=== PATIENT | female | born 1950 | race African-American/Black ===

== ENCOUNTER 2016-08-05 22:05 | Inpatient (IN) | payer MEDICARE ==
[2016-08-05 22:12] VITALS: BMI 25.0
[2016-08-05] MEDS ORDERED: SODIUM CHLORIDE 1,000 ML IV STA ×2 (22:22→23:43)
[2016-08-05] MEDS ORDERED: ONDANSETRON 4 MG/2 ML VIAL IVPB ONE (22:40)
--- NOTE | 2016-08-05 22:43 | PDOC ---
History of Present Illness - General History Source: Patient Exam Limitations: No Limitations - History of Present Illness Initial Comments: 08/05/16 23:44 The patient is a 65 year old female with past medical history of NIDDM, hypertension, hyperlipidemia, who presents to the ED with elevated sugar levels. She reports experiencing an episode of sudden onset epigastric pain, mid -sternal chest discomfort, as well as nausea, vomiting, and a right sided temporal headache that began three hours ago. She reports an overall feeling of weakness as well. She checked her sugar which was noted to be 379. She reports her baseline is in the 300s and reports taking her medications today. The patient also complains of increased thirst and urinary frequency. GI: Pito Morin PCP: Linden Parker <Karyna Weber - Last Filed: 08/06/16 01:41> - General History Source: Patient Exam Limitations: No Limitations <Manny Siu - Last Filed: 08/06/16 01:50> - General Chief Complaint: Blood Sugar Problem Stated Complaint: VOMITING/LIGHTHEADED Time Seen by Provider: 08/05/16 22:20 Past History <Karyna Weber - Last Filed: 08/06/16 01:41> - Past Medical History Anemia: No Asthma: No Cancer: No Cardiac Disorders: Yes (denies) CVA: No COPD: No CHF: No Dementia: No Diabetes: Yes GI Disorders: Yes (ulcers) Disorders: No HTN: Yes Hypercholesterolemia: Yes Liver Disease: No Suicide Attempt (Hx): No Seizures: No Thyroid Disease: No - Surgical History Abdominal Surgery: No Appendectomy: No Cardiac Surgery: No Cholecystectomy: No Lung Surgery: No Orthopedic Surgery: No - Psycho/Social/Smoking Cessation Hx Anxiety: No Suicidal Ideation: No Smoking Status: Yes Smoking History: Current every day smoker Have you smoked in the past 12 months: No Number of Cigarettes Smoked Daily: 10 Information on smoking cessation initiated: No 'Breaking Loose' booklet given: 03/16/17 Hx Alcohol Use: No Drug/Substance Use Hx: No Substance Use Type: None Hx Substance Use Treatment: No <Manny Siu - Last Filed: 08/06/16 01:50> - Past Medical History Allergies/Adverse Reactions: Allergies Allergy/AdvReac Type Severity Reaction Status Date / Time No Known Drug Allergies Allergy Verified 08/05/16 22:09 Home Medications: Ambulatory Orders Aspirin Coated [Ecotrin -] 81 mg PO DAILY 03/14/16 Atorvastatin Ca [Lipitor] 20 mg PO HS 03/15/16 Linagliptin/Metformin HCl [Jentadueto 2.5 mg-1000 mg Tab] 1 each PO BID Losartan/Hydrochlorothiazide [Losartan-Hctz 50-12.5 mg Tab] 1 each PO DAILY Oxybutynin Chloride 5 mg PO BID 03/15/16 Review of Systems - Review of Systems Able to Perform ROS?: Yes Comments:: 08/05/16 23:44 GENERAL/CONSTITUTIONAL: Present: weakness No fever or chills. HEAD, EYES, EARS, NOSE AND THROAT: No change in vision. No ear pain or discharge. No sore throat CARDIOVASCULAR: No chest pain or shortness of breath. RESPIRATORY: No cough, wheezing, or hemoptysis. GASTROINTESTINAL: Present: epigastric pain, nausea, vomiting No diarrhea or constipation. GENITOURINARY: Present: urinary frequency No dysuria or change in urination. MUSCULOSKELETAL: No joint or muscle swelling or pain. No neck or back pain. SKIN: No rash NEUROLOGIC: Present: headache No vertigo, loss of consciousness, or change in strength/sensation. ENDOCRINE: No increased thirst. No abnormal weight change. HEMATOLOGIC/LYMPHATIC: No anemia, easy bleeding, or history of blood clots. ALLERGIC/IMMUNOLOGIC: No hives or skin allergy. All Other Systems: Reviewed and Negative <Karyna Weber - Last Filed: 08/06/16 01:41> *Physical Exam - Vital Signs Last Vital Signs Temp Pulse Resp BP Pulse Ox 98.7 F 94 H 14 144/82 96 08/05/16 22:10 08/05/16 22:10 08/05/16 22:10 08/05/16 22:10 08/05/16 22:10 - Physical Exam Comments: 08/05/16 23:47 GENERAL: Awake, alert, and fully oriented, in no acute distress HEAD: No signs of trauma EYES: PERRLA, EOMI, sclera anicteric, conjunctiva clear ENT: Auricles normal inspection, hearing grossly normal, nares patent, oropharynx clear without exudates. Moist mucosa NECK: Normal ROM, supple, no lymphadenopathy, JVD, or masses LUNGS: Breath sounds equal, clear to auscultation bilaterally. No wheezes, and no crackles HEART: Regular rate and rhythm, normal S1 and S2, no murmurs, rubs or gallops ABDOMEN: Soft, epigastric tenderness to palpation, normoactive bowel sounds. No guarding, no rebound. No masses EXTREMITIES: Normal range of motion, no edema. No clubbing or cyanosis. No cords, erythema, or tenderness NEUROLOGICAL: Cranial nerves II through XII grossly intact. Normal speech, normal gait <GusKaryna - Last Filed: 08/06/16 01:41> - Vital Signs Last Vital Signs Temp Pulse Resp BP Pulse Ox 98.7 F 94 H 14 144/82 96 08/05/16 22:10 08/05/16 22:10 08/05/16 22:10 08/05/16 22:10 08/05/16 22:10 <Manny Siu - Last Filed: 08/06/16 01:50> Heart Score/ECG Review - History History: Moderately suspicious - Electrocardiogram EKG: Normal - Age Age: >/= 65 - Risk Factors Risk Factors Heart Score: Yes Hx Hypercholesterolemia, Yes Hx Hypertension, Yes Hx Diabetes Based on the list above the patient has:: >/=3 risk factors or Hx atherosclerotic disease - Troponin Troponin: </= normal limit - Score Heart Score - Total: 5 #1 ECG reviewed & interpreted by me at: 23:20 08/05/16 23:53 NSR 82, no std/navin, normal axis, normal intervals, QTC 441 msec. <Manny Siu - Last Filed: 08/06/16 01:50> ED Treatment Course - LABORATORY CBC & Chemistry Diagram: 08/05/16 22:49 08/06/16 00:05 - ADDITIONAL ORDERS Additional order review: Laboratory Results 08/05/16 08/05/16 08/05/16 22:50 22:50 22:49 INR 1.04 PTT (Actin FS) 29.1 Sodium Cancelled Potassium Cancelled Chloride Cancelled Carbon Dioxide Cancelled Anion Gap Cancelled BUN Cancelled Creatinine Cancelled Creat Clearance w eGFR Cancelled Random Glucose Cancelled Lactic Acid 4.543 H* Calcium Cancelled Total Bilirubin Cancelled AST Cancelled ALT Cancelled Alkaline Phosphatase Cancelled Total Protein Cancelled Albumin Cancelled Urine Color Urine Appearance Urine pH Ur Specific [place] Urine Protein Urine Glucose (UA) Urine Ketones Urine Blood Urine Nitrite Urine Bilirubin Urine Urobilinogen Ur Leukocyte Esterase Acetone, Qual Cancelled 08/05/16 22:49 INR PTT (Actin FS) Sodium Potassium Chloride Carbon Dioxide Anion Gap BUN Creatinine Creat Clearance w eGFR Random Glucose Lactic Acid Calcium Total Bilirubin AST ALT Alkaline Phosphatase Total Protein Albumin Urine Color Straw Urine Appearance Clear Urine pH 5.0 Ur Specific [place] 1.030 Urine Protein Negative Urine Glucose (UA) 3+ H Urine Ketones Negative Urine Blood Negative Urine Nitrite Negative Urine Bilirubin Negative Urine Urobilinogen Negative Ur Leukocyte Esterase Negative Acetone, Qual 08/05/16 22:49 RBC 5.57 H MCV 87.9 MCHC 33.4 RDW 14.6 MPV 10.0 Neutrophils % 57.9 D Lymphocytes % 34.2 D Monocytes % 4.4 Eosinophils % 1.0 Basophils % 2.5 H D - Medications Given in the ED: ED Medications Discontinued Medications Generic Name Dose Route Start Last Admin Trade Name Freq PRN Reason Stop Dose Admin Sodium Chloride 1,000 mls @ 1,000 mls/hr 08/05/16 22:22 08/05/16 22:49 Normal Saline - IV 08/05/16 23:21 1,000 mls/hr ASDIR STA Administration Ondansetron HCl 4 mg 08/05/16 22:40 08/05/16 23:37 Zofran Injection IVPB 08/05/16 22:41 4 mg ONCE ONE Administration <Karyna Weber - Last Filed: 08/06/16 01:41> - LABORATORY CBC & Chemistry Diagram: 08/05/16 22:49 08/06/16 00:05 - RADIOLOGY Radiology Studies Ordered: Category Date Time Status CHEST X-RAY PORTABLE* [RAD] Stat Radiology 08/05/16 22:31 Ordered <Manny Siu - Last Filed: 08/06/16 01:50> Medical Decision Making - Medical Decision Making 08/06/16 01:35 Phone call sent to Dr. Kam, who admits for Dr. Parker via answering service. Call was connected immediately and the case was discussed. <Karyna Weber - Last Filed: 08/06/16 01:41> - Medical Decision Making 08/05/16 22:40 A portion of this note was documented by scribe services under my direction. I have reviewed the details of the note, within reason, and agree with the documentation with the following case summary and management plan written by me. Patient treated in the ED. Nursing notes are reviewed and incorporated into the medical decision-making. Vital signs reviewed. Peripheral IV access obtained by the nurse, laboratory studies are drawn and sent, reviewed and interpreted by myself. Vital Signs Temp Pulse Resp BP Pulse Ox 98.7 F 94 H 14 144/82 96 08/05/16 22:10 08/05/16 22:10 08/05/16 22:10 08/05/16 22:10 08/05/16 22:10 65-year-old female with history of hypertension, diabetes presents with nausea, vomiting. Patient was in her usual state of health when approximately 3 hours prior to arrival, she felt this epigastric and misternal chest discomfort and pressure, nausea, vomiting, right-sided headache and felt generally weak. She fell persistent nauseous and general malaise. Patient then checked her fingerstick was noted to be in the high 370s (but patient reports that her glucose is always greater than 300 at baseline.. Patient called 911 and the patient was brought to the ER. She continues to feel generally unwell. Also endorses urinary frequency (though again that this is chronic for her as well). Given hx of DM and epigastric, subxiphoid discomfort and nausea, will need to [facility]. However, with elevated sugars and increased urinary frequency, will need to r/o UTI, though patient's urinary frequency may be 2/2 to her hyperglycemia. Labs, chest. Reassess. The patient should be admitted for further evaluation. As of note, the patient goes to Dr. Morin for persistent, chronic epigastric pain. She reports having an endoscopy within this past year but does not know results. 08/06/16 01:44 CBC, BMP 08/05/16 22:49 08/06/16 00:05 CMP Sodium 146 mmol/L (136-145) H 08/06/16 00:05 Potassium 3.7 mmol/L (3.5-5.1) 08/06/16 00:05 Chloride 101 mmol/L (98-107) 08/06/16 00:05 Carbon Dioxide 28 mmol/L (21-32) 08/06/16 00:05 Anion Gap 17 (8-16) H 08/06/16 00:05 BUN 13 mg/dL (7-18) D 08/06/16 00:05 Creatinine 0.7 mg/dL (0.55-1.02) 08/06/16 00:05 Creat Clearance w eGFR > 60 (>60) 08/06/16 00:05 Random Glucose 295 mg/dL (74-106) H D 08/06/16 00:05 Lactic Acid 2.225 mmol/L (0.4-2.0) H* 08/06/16 00:05 Calcium 8.9 mg/dL (8.5-10.1) 08/06/16 00:05 Total Bilirubin 0.3 mg/dL (0.2-1.0) D 08/06/16 00:05 AST 6 U/L (15-37) L D 08/06/16 00:05 ALT 16 U/L (12-78) D 08/06/16 00:05 Alkaline Phosphatase 96 U/L (45-117) D 08/06/16 00:05 Creatine Kinase 61 IU/L (26-192) 08/06/16 00:05 Troponin I 0.10 ng/ml (0.00-0.05) H 08/06/16 00:05 Total Protein 6.5 g/dl (6.4-8.2) 08/06/16 00:05 Albumin 3.4 g/dl (3.4-5.0) 08/06/16 00:05 Urine Test Results Urine Color Straw 08/05/16 22:49 Urine Appearance Clear 08/05/16 22:49 Urine pH 5.0 (5.0-8.0) 08/05/16 22:49 Ur Specific [place] 1.030 (1.001-1.035) 08/05/16 22:49 Urine Protein Negative (NEGATIVE) 08/05/16 22:49 Urine Glucose (UA) 3+ (NEGATIVE) H 08/05/16 22:49 Urine Ketones Negative (NEGATIVE) 08/05/16 22:49 Urine Blood Negative (NEGATIVE) 08/05/16 22:49 Urine Nitrite Negative (NEGATIVE) 08/05/16 22:49 Urine Bilirubin Negative (NEGATIVE) 08/05/16 22:49 Ur Leukocyte Esterase Negative (NEGATIVE) 08/05/16 22:49 Chest xray pending. Labs reviewed. Initially, a lactic acid was 4.5. A second was repeat after 1L of IVF, and the second lactic acid was 2.2. Blood cultures was ordered and empiric zosyn was ordered. Interestingly, the troponin was 0.1 as well. Aspirin was given. Will trend the troponins. If the troponin continues to trend upwards, will initiate heparin. Consultation placed in for Dr. Caballero. Case discussed with Dr. Kam who accepted the patient to telemetry admission. Case discussed in detail with admitting physician including history, physical exam and ancillary studies. Admitting physician has assumed care for the patient, will follow all pending diagnostics and will complete the evaluation and treatment. 08/06/16 01:50 Pt reports that her PMD is Dr. Linden Parker <Manny Siu - Last Filed: 08/06/16 01:50> *DC/Admit/Observation/Transfer - Attestations Scribe Attestion: 08/05/16 23:52 Documentation prepared by Karyna Weber, acting as medical supply technician for Manny Siu MD. <Karyna Weber - Last Filed: 08/06/16 01:41> - Discharge Dispostion Admit: Yes <Manny Siu - Last Filed: 08/06/16 01:50> Diagnosis at time of Disposition: Elevated troponin Abdominal pain Qualifiers: Abdominal location: epigastric Qualified Code(s): R10.13 - Epigastric pain - Referrals Referrals: Anuja Parker [Primary Care Provider] -
[2016-08-05 23:00] LABS: BASOPHIL 2.5 % (0-2.0); MCH 29.4 pg (25.7-33.7); MCHC 33.4 g/dl (32.0-36.0); MEAN CELL VOLUME 87.9 fl (80-96); NEUTROPHILS 57.9 % (42.8-82.8); PLATELET COUNT 266 K/MM3 (134-434); RDW 14.6 % (11.6-15.6); WHITE BLOOD COUNT 10.1 K/mm3 (4.0-10.0)
[2016-08-05 23:03] LABS: URINE APPEARANCE CLEAR; URINE BILIRUBIN NEGATIVE (NEGATIVE); URINE BLOOD NEGATIVE (NEGATIVE); URINE COLOR STRAW; URINE GLUCOSE (UA) 3+ (NEGATIVE); URINE KETONE NEGATIVE (NEGATIVE); URINE LEUK ESTERASE NEGATIVE (NEGATIVE); URINE NITRITE NEGATIVE (NEGATIVE); URINE PROTEIN NEGATIVE (NEGATIVE); URINE UROBILINOGEN NEGATIVE E.U./dl (0.2-1.0)
[2016-08-05 23:19] LABS: INR 1.04 (0.82-1.09); PROTHROMBIN TIME (PATIENT) 11.5 SEC (9.98-11.88)
[2016-08-05 23:22] LABS: ACTIVATED PTT 29.1 SECONDS (26.9-34.4)
[2016-08-05] MEDS ORDERED: ONDANSETRON 4 MG/2 ML VIAL ONE (23:38)
[2016-08-05] MEDS ORDERED: FAMOTIDINE 20 MG/50 ML IVPB 50 ML IVPB ONE (23:51)
[2016-08-05] MEDS ORDERED: ASPIRIN 81 MG CHEWABLE TABLETS PO ONE (23:51)
[2016-08-06] MEDS ORDERED: ASPIRIN 325 MG TABLET ONE (00:20)
[2016-08-06] MEDS ORDERED: FAMOTIDINE 20 MG/50 ML IVPB 50 ML IVPB ONE (00:20)
[2016-08-06 01:06] LABS: ALBUMIN 3.4 g/dl (3.4-5.0); ALK PHOS 96 U/L (45-117); ANION GAP 17 (8-16); BILIRUBIN,TOTAL 0.3 mg/dL (0.2-1.0); CALCIUM 8.9 mg/dL (8.5-10.1); CO2 28 mmol/L (21-32); CREATININE 0.7 mg/dL (0.55-1.02); GLUCOSE,RANDOM 295 mg/dL (74-106); SGOT/AST 6 U/L (15-37); SGPT/ALT 16 U/L (12-78); TOT PROT 6.5 g/dl (6.4-8.2)
[2016-08-06 01:09] LABS: TROPONIN I 0.1 ng/ml (0.00-0.05)
[2016-08-06] MEDS ORDERED: PIPERACILLIN/TAZOB 3.375 GM/50 ML PRE-DOCKED IVPB ONE (01:29)
[2016-08-06] MEDS ORDERED: PIPERACILLIN/TAZOB 3.375 GM 50 ML IVPB ONE (02:39)
--- NOTE | 2016-08-06 03:33 | HP ---
CHIEF COMPLAINT: Elevated Blood Sugar, Chest Pain, Epigastric Pain PCP: Dr. Linden Parker HISTORY OF PRESENT ILLNESS: This is a 65 year old woman with a past medical of NIDDM, HTN, HLD, Ulcer, Smoker. Who presents to the emergency department with elevated blood sugar, chest pain and epigastric pain x last night. Patient reports the quality of the CP as a dull ache with burning to her epigastrium. Patient reports having non- bilious vomiting. Patient reports having tingling to bilateral feet x 2 weeks. Patient reports having an echo 3 weeks ago results-normal. Patient denies fever , chills , dizziness, SOB, diarrhea, constipation, dysuria ER course was notable for: (1) Glucose 295, AG 17, Serum Acetone- negative (2) Lactic Acid 4.5~ 2.25 after 2L NS bolus (3) EKG- NSR no ST or TWI Recent Travel: None PAST MEDICAL HISTORY: See HPI PAST SURGICAL HISTORY: Social History: Smoking: Cigarette 1/2PPD x 35 years Alcohol: None Drugs: None Lives alone-retired Family History: Brother: Throat Ca Brother: Prostate Ca Sister: Cancer, unknown- Diabetes: Grandmother, Grandfather Allergies No Known Drug Allergies Allergy (Verified 08/05/16 22:09) HOME MEDICATIONS: Medication Instructions Recorded Aspirin Coated [Ecotrin -] 81 mg PO DAILY 03/14/16 Atorvastatin Ca [Lipitor] 20 mg PO HS 03/15/16 Linagliptin/Metformin HCl 1 each PO BID 03/15/16 [Jentadueto 2.5 mg-1000 mg Tab] Losartan/Hydrochlorothiazide 1 each PO DAILY 03/15/16 [Losartan-Hctz 50-12.5 mg Tab] Oxybutynin Chloride 5 mg PO BID 03/15/16 REVIEW OF SYSTEMS CONSTITUTIONAL: Absent: fever, chills, diaphoresis, generalized weakness, malaise, loss of appetite, weight change HEENT: Absent: rhinorrhea, nasal congestion, throat pain, throat swelling, difficulty swallowing, mouth swelling, ear pain, eye pain, visual changes CARDIOVASCULAR: chest pain Absent: syncope, palpitations, irregular heart rate, lightheadedness, peripheral edema RESPIRATORY: Absent: cough, shortness of breath, dyspnea with exertion, orthopnea, wheezing, stridor, hemoptysis GASTROINTESTINAL: abdominal pain, nausea, vomiting Absent: abdominal distension, diarrhea, constipation, melena, hematochezia GENITOURINARY: Absent: dysuria, frequency, urgency, hesitancy, hematuria, flank pain, genital pain MUSCULOSKELETAL: Absent: myalgia, arthralgia, joint swelling, back pain, neck pain SKIN: Absent: rash, itching, pallor HEMATOLOGIC/IMMUNOLOGIC: Absent: easy bleeding, easy bruising, lymphadenopathy, frequent infections ENDOCRINE: Absent: unexplained weight gain, unexplained weight loss, heat intolerance, cold intolerance NEUROLOGIC: bladder incontinence Absent: headache, focal weakness or paresthesias, dizziness, unsteady gait, seizure, mental status changes, bowel incontinence PSYCHIATRIC: Absent: anxiety, depression, suicidal or homicidal ideation, hallucinations. PHYSICAL EXAMINATION GENERAL: Awake, alert, and fully oriented, in no acute distress. HEAD: Normal with no signs of trauma. EYES: Pupils equal, round and reactive to light, extraocular movements intact, sclera anicteric, conjunctiva clear. No lid lag. EARS, NOSE, THROAT: Ears normal, nares patent, oropharynx clear without exudates. Moist mucous membranes. NECK: Normal range of motion, supple without lymphadenopathy, JVD, or masses. LUNGS: Breath sounds equal, clear to auscultation bilaterally. No wheezes, and no crackles. No accessory muscle use. HEART: Regular rate and rhythm, normal S1 and S2 without murmur, rub or gallop. Non-reproducible CP on palpation ABDOMEN: Soft, epigastric tenderness, not distended, normoactive bowel sounds, no guarding, no rebound, no masses. No hepatomegaly or splenomegaly. MUSCULOSKELETAL: Normal range of motion at all joints. No bony deformities or tenderness. No CVA tenderness. UPPER EXTREMITIES: 2+ pulses, warm, well-perfused. No cyanosis. No clubbing. Cap refill <2 seconds. No peripheral edema. LOWER EXTREMITIES: 2+ pulses, warm, well-perfused. No calf tenderness. No peripheral edema. NEUROLOGICAL: Cranial nerves II-XII intact. Normal speech. Normal gait. PSYCHIATRIC: Cooperative. Good eye contact. Appropriate mood and affect. SKIN: Warm, dry, normal turgor, no rashes or lesions noted. Laboratory Results - last 24 hr 08/05/16 08/05/16 08/05/16 22:49 22:49 22:49 WBC 10.1 H RBC 5.57 H Hgb 16.4 H Hct 49.0 H MCV 87.9 MCHC 33.4 RDW 14.6 Plt Count 266 MPV 10.0 Neutrophils % 57.9 D Lymphocytes % 34.2 D Monocytes % 4.4 Eosinophils % 1.0 Basophils % 2.5 H D INR PTT (Actin FS) Sodium Cancelled Potassium Cancelled Chloride Cancelled Carbon Dioxide Cancelled Anion Gap Cancelled BUN Cancelled Creatinine Cancelled Creat Clearance w eGFR Cancelled Random Glucose Cancelled Lactic Acid Calcium Cancelled Total Bilirubin Cancelled AST Cancelled ALT Cancelled Alkaline Phosphatase Cancelled Creatine Kinase Troponin I Total Protein Cancelled Albumin Cancelled Urine Color Straw Urine Appearance Clear Urine pH 5.0 Ur Specific [place] 1.030 Urine Protein Negative Urine Glucose (UA) 3+ H Urine Ketones Negative Urine Blood Negative Urine Nitrite Negative Urine Bilirubin Negative Urine Urobilinogen Negative Ur Leukocyte Esterase Negative Acetone, Qual Cancelled 08/05/16 08/05/16 08/06/16 22:50 22:50 00:05 WBC RBC Hgb Hct MCV MCHC RDW Plt Count MPV Neutrophils % Lymphocytes % Monocytes % Eosinophils % Basophils % INR 1.04 PTT (Actin FS) 29.1 Sodium 146 H Potassium 3.7 Chloride 101 Carbon Dioxide 28 Anion Gap 17 H BUN 13 D Creatinine 0.7 Creat Clearance w eGFR > 60 Random Glucose 295 H D Lactic Acid 4.543 H* Calcium 8.9 Total Bilirubin 0.3 D AST 6 L D ALT 16 D Alkaline Phosphatase 96 D Creatine Kinase Troponin I Total Protein 6.5 Albumin 3.4 Urine Color Urine Appearance Urine pH Ur Specific [place] Urine Protein Urine Glucose (UA) Urine Ketones Urine Blood Urine Nitrite Urine Bilirubin Urine Urobilinogen Ur Leukocyte Esterase Acetone, Qual 08/06/16 08/06/16 08/06/16 00:05 00:05 00:25 WBC RBC Hgb Hct MCV MCHC RDW Plt Count MPV Neutrophils % Lymphocytes % Monocytes % Eosinophils % Basophils % INR PTT (Actin FS) Sodium Cancelled Potassium Cancelled Chloride Cancelled Carbon Dioxide Cancelled Anion Gap Cancelled BUN Cancelled Creatinine Cancelled Creat Clearance w eGFR Random Glucose Cancelled Lactic Acid 2.225 H* Calcium Cancelled Total Bilirubin AST ALT Alkaline Phosphatase Creatine Kinase 61 Troponin I 0.10 H Total Protein Albumin Urine Color Urine Appearance Urine pH Ur Specific [place] Urine Protein Urine Glucose (UA) Urine Ketones Urine Blood Urine Nitrite Urine Bilirubin Urine Urobilinogen Ur Leukocyte Esterase Acetone, Qual Negative L 08/06/16 08/06/16 04:47 04:47 WBC 10.2 H RBC 4.71 Hgb 13.7 D Hct 41.2 D MCV 87.6 MCHC 33.3 RDW 15.0 Plt Count 223 MPV 9.4 Neutrophils % 52.1 Lymphocytes % 40.6 H Monocytes % 5.1 Eosinophils % 1.1 Basophils % 1.1 INR PTT (Actin FS) Sodium Potassium Chloride Carbon Dioxide Anion Gap BUN Creatinine Creat Clearance w eGFR Random Glucose Lactic Acid Calcium Total Bilirubin AST ALT Alkaline Phosphatase Creatine Kinase Cancelled Troponin I Cancelled Total Protein Albumin Urine Color Urine Appearance Urine pH Ur Specific [place] Urine Protein Urine Glucose (UA) Urine Ketones Urine Blood Urine Nitrite Urine Bilirubin Urine Urobilinogen Ur Leukocyte Esterase Acetone, Qual ASSESSMENT/PLAN: This is a 65 year old woman with a PMHx of: NIDDM, HTN, HLD, Gastric Ulcer, Current Smoker. Who presents to the ED with Hyperglycemia, Chest Pain. Admitted to Telemetry for Dr. Kam, Chest Pain r/o ACS, Elevated Troponin, Hyperglycemia for further evaluation of their emergent condition. Patient was admitted as a tuck in to Dr. Kam's service per her request per ED attending Dr. Varela. Plan: 1. Chest Pain r/o ACS - Tele monitoring - HEART Score 5 - Appreciate Cardiology consult - Trop I mildly elevated - Cardiac Enzymes x2 - Consider Heparin if Trop I continues to trend up - Will need to obtain patient's recent Echo done 3 weeks ago at [facility] - Lipid Panel in am - Asa - BB - Monitor vitals 2. Hyperglycemia - Uncontrolled - AG 17~11 - NS bolus x2 given in ED - IVF - BGMs - ISS - HgBA1C in am - Monitor renal function - Monitor BMP - Hold Metformin 3. Epigastric Pain - Continue Pepcid 4. Hypomagnesemia - Repleted with Mag Sulfate 2Gm - Monitor lytes 5. HTN - Continue Losartan - Hold HCTZ - Monitor BP 6. HLD - Monitor Lipitor - Lipid Panel in am 7. F/E/N - 0.45%NS@75ml/hr - Repleted lytes prn 8. DVT Prophylaxis - OOB - SCDs - Heparin SQ Code Status: Patient is a Full Code Visit type - Emergency Visit Emergency Visit: Yes ED Registration Date: 08/06/16 Care time: The patient presented to the Emergency Department on the above date and was hospitalized for further evaluation of their emergent condition. - New Patient This patient is new to me today: Yes Date on this admission: 08/06/16 - Critical Care Critical Care patient: No
[2016-08-06] MEDS: SODIUM CHLORIDE 0.45% 1,000 ML IV SCH ×2 (04:44→22:51)
[2016-08-06 05:12] LABS: BASOPHIL 1.1 % (0-2.0); EOSINOPHIL 1.1 % (0-4.5); MCH 29.1 pg (25.7-33.7); MCHC 33.3 g/dl (32.0-36.0); MEAN CELL VOLUME 87.6 fl (80-96); MEAN PLT VOLUME 9.4 fl (7.5-11.1); NEUTROPHILS 52.1 % (42.8-82.8); PLATELET COUNT 223 K/MM3 (134-434); WHITE BLOOD COUNT 10.2 K/mm3 (4.0-10.0)
[2016-08-06 05:38] LABS: CALCIUM 8.4 mg/dL (8.5-10.1); CREATININE 0.6 mg/dL (0.55-1.02); MAGNESIUM 1.5 mg/dL (1.8-2.4); PHOSPHOROUS 3.7 mg/dL (2.5-4.9)
[2016-08-06 05:40] LABS: TROPONIN I 0.11 ng/ml (0.00-0.05)
[2016-08-06] MEDS ORDERED: MAGNESIUM SULF 50% (8.12 MEQ/2 ML-1 GM VIAL) IVPB ONE (06:41)
[2016-08-06] MEDS ORDERED: INSULIN (NOVOLOG) ASPART 100 UNITS/ML 10ML VIAL SQ ONE (06:56)
[2016-08-06] MEDS: INSULIN SLIDING SCALE (NOVOLOG) 1 VIAL SQ SCH ×4 (07:02→22:51)
--- NOTE | 2016-08-06 10:11 | PN ---
Physical Exam: SUBJECTIVE: Patient seen and examined Lactic acidosis resolved TNi 0.11 5am A1c 12.4 cxr 08/05 no acute pathology BGM this morning 225-will start low salt diabetic diet for lunch Chest pain and abdominal pain resolved OBJECTIVE: Vital Signs Period Temp Pulse Resp BP Sys/Long Pulse Ox Last 24 Hr 98 F 73 16 144/72 99 GENERAL: The patient is awake, alert, in no acute distress. HEAD: atraumatic normocephalic EYES: PERRL, extraocular movements intact, sclera anicteric, conjunctiva clear. No ptosis. ENT: Ears normal, nares patent, oropharynx clear without exudates, moist mucous membranes. NECK: Trachea midline, full range of motion, supple. LUNGS: Breath sounds equal, clear to auscultation bilaterally, no wheezes, no crackles, no accessory muscle use. HEART: Regular rate and rhythm, S1, S2 without murmur, rub or gallops ABDOMEN: Soft, nondistended, non tender normoactive bowel sounds EXTREMITIES: 2+ pulses, warm, well-perfused, no edema. NEUROLOGICAL: Cranial nerves II through XII grossly intact. Normal speech, gait not observed. PSYCH: Normal mood, normal affect. SKIN: Warm, dry, normal turgor, no rashes or lesions noted Laboratory Results - last 24 hr 08/06/16 08/06/16 08/06/16 04:47 04:47 04:47 WBC 10.2 H RBC 4.71 Hgb 13.7 D Hct 41.2 D MCV 87.6 MCHC 33.3 RDW 15.0 Plt Count 223 MPV 9.4 Neutrophils % 52.1 Lymphocytes % 40.6 H Monocytes % 5.1 Eosinophils % 1.1 Basophils % 1.1 Sodium 144 Potassium 3.8 Chloride 103 Carbon Dioxide 30 Anion Gap 11 BUN 12 Creatinine 0.6 Random Glucose 245 H Hemoglobin A1c % 12.4 H D Lactic Acid Calcium 8.4 L Phosphorus 3.7 Magnesium 1.5 L Creatine Kinase Cancelled Troponin I Cancelled Triglycerides 57 Cholesterol 88 Total LDL Cholesterol 48 HDL Cholesterol 37 L 08/06/16 08/06/16 04:47 04:47 WBC RBC Hgb Hct MCV MCHC RDW Plt Count MPV Neutrophils % Lymphocytes % Monocytes % Eosinophils % Basophils % Sodium Potassium Chloride Carbon Dioxide Anion Gap BUN Creatinine Random Glucose Hemoglobin A1c % Lactic Acid 1.486 Calcium Phosphorus Magnesium Creatine Kinase 60 Troponin I 0.11 H Triglycerides Cholesterol Total LDL Cholesterol HDL Cholesterol Active Medications Generic Name Dose Route Start Last Admin Trade Name Robert PRN Reason Stop Dose Admin Aspirin 81 mg 08/06/16 10:00 Ecotrin - PO DAILY REAGAN Atorvastatin Calcium 20 mg 08/06/16 22:00 Lipitor - PO HS REAGAN Heparin Sodium (Porcine) 5,000 unit 08/06/16 10:00 Heparin - SQ BID REAGAN Sodium Chloride 1,000 mls @ 60 mls/hr 08/06/16 04:30 08/06/16 04:44 1/2 Normal Saline IV 60 mls/hr ASDIR REAGAN Administration Insulin Aspart 1 vial 08/06/16 07:00 08/06/16 07:02 Novolog Vial Sliding Scale - SQ Not Given ACHS [facility] Protocol Losartan Potassium 50 mg 08/06/16 10:00 Cozaar - PO DAILY [facility] Oxybutynin Chloride 5 mg 08/06/16 10:00 Ditropan - PO BID REAGAN ASSESSMENT/PLAN: 65 y/o female with PMHx of NIDDM, hypertension, hyperlipidemia, gastric ulcers, active smoker who presents to the ED with complaints of epigastric and midsternal chest discomfort with associated nausea and vomiting (non bloody), headache and generalized malaise. She reports checking her sugar and it was noted to be in the high 300's. Per patient her glucose is usually greater than 300. She also reports increased thirst and urinary frequency (chronic). In the ER she received ASA 325 mg, Zosyn 3.375g, famotidine, IVF started and she received novolog 3 units for a sugar of 295. Blood and urine collected and her magnesium was repleted. CXR 08/05 no acute pathology. In the ER she was found to have an elevated lactic acid and anion gap which resolved post IVF. ECG NSR no ST or TWI. Her cardiac enzymes are mildly elevated 0.11 at 5am. She will be admitted to tele to [facility] for ACS and cardio will be consulted Of note the patient is under the care of Dr Garcia for chronic persistent epigastric pain. Patient reports having EGD done around 3 months ago but does not know the results of the study. 1 Supxiphoid pain/ACS:resolved -Continuous Tele -repeat enzymes -Cardio conuslt pending. May require heparin ggt -ASA 81 mg daily -Continue with statin -not on BB 2 Elevated TNi -Patient reports chest pain resolved -enzymes on the upper limit of normal -repeat enzymes -cardio consult 3 urinary frequency (chronic) ? UTI vs hyperglycemia vs overactive bladder -urine sent to r/o UTI. UA neg, cx pending -continue IVF -glucose control -continue with home dose of oxybutonin 4 hyperglycemia (uncontroleld) -A1c 12.4. patient reports glucose usually in the 300s -glucose now 225-will resume low salt diabetic diet for lunch -BGMs ACTID and novolog ISS coverage added -hold home dose of metformin 5 epigastric pain:resolved -protonix 20 mg PO q day -f/u with GI (dr garcia) if pain does not improve 6 HTN: -continue home dose of losartan -may uptitrate if BP remains elevated 7 hypomagnesmia -mag repleted -f/u mg and phos 8 DVT ppx -heparin SQ Dispo Cardio consult f/u cardiac enzymes and lytes, restart PO intake for lunch. Code Status: Patient is a Full Code Visit type - Emergency Visit Emergency Visit: Yes ED Registration Date: 08/06/16 Care time: The patient presented to the Emergency Department on the above date and was hospitalized for further evaluation of their emergent condition. - New Patient This patient is new to me today: Yes Date on this admission: 08/08/16 - Critical Care Critical Care patient: No
[2016-08-06] MEDS ORDERED: LOSARTAN POTASSIUM 25 MG TABLET ONE (10:19)
[2016-08-06] MEDS: LOSARTAN POTASSIUM 50 MG TABLET (FP) PO SCH (10:24)
[2016-08-06] MEDS: HEPARIN NA (PORCINE) 5,000 UNITS/ML 1ML VIAL SQ SCH ×2 (10:24→22:50)
[2016-08-06] MEDS: ASPIRIN COATED 81 MG TABLET.EC PO SCH (10:28)
[2016-08-06] MEDS: OXYBUTYNIN CHLORIDE 5 MG TABLET PO SCH ×2 (10:28→22:50)
[2016-08-06] MEDS ORDERED: INSULIN (NOVOLOG) ASPART 100 UNITS/ML 10ML VIAL ONE ×2 (11:15→17:48)
--- NOTE | 2016-08-06 11:34 | CON.CARD ---
Consult Consult Specialty:: Cardiology Referred by:: ER Reason for Consultation:: Chest pain, elevated troponin - History of Present Illness Chief Complaint: abdominal pain History of Present Illness: 65 year old woman with a history of HTN, HLD, DMII, presented with uncontrolled glucose, nausea, vomiting, epigastric pain. Pt. seen and examined in the er in nad. states she is feeling better but still has epigastric discomfort. denies having any chest pain. no sob, palpitations, lightheadedness, dizziness, syncope , near syncope, pnd, orthopnea, or LE edema. - History Source History Provided By: Patient, Medical Record Limitations to Obtaining History: No Limitations - Past Medical History Cardio/Vascular: Yes: HTN, Hyperlipdemia Gastrointestinal: Yes: Other (Had EGD and reports an abnormality on upper endoscopy, details unclear.) Renal/: Yes: Renal Calculi (> 10 years ago) Endocrine: Yes: Diabetes Mellitus - Alcohol/Substance Use Hx Alcohol Use: No History of Substance Use: reports: None - Smoking History Smoking history: Current every day smoker Have you smoked in the past 12 months: No Aproximately how many cigarettes per day: 10 - Social History ADL: Independent History of Recent Travel: No Home Medications - Allergies Allergies/Adverse Reactions: Allergies Allergy/AdvReac Type Severity Reaction Status Date / Time No Known Drug Allergies Allergy Verified 08/05/16 22:09 - Home Medications Home Medications: Ambulatory Orders Aspirin Coated [Ecotrin -] 81 mg PO DAILY 03/14/16 Atorvastatin Ca [Lipitor] 20 mg PO HS 03/15/16 Linagliptin/Metformin HCl [Jentadueto 2.5 mg-1000 mg Tab] 1 each PO BID Losartan/Hydrochlorothiazide [Losartan-Hctz 50-12.5 mg Tab] 1 each PO DAILY Oxybutynin Chloride 5 mg PO BID 03/15/16 Metformin HCl 500 mg PO BID 08/06/16 Family Disease History - Family Disease History Family History: Denies Review of Systems - Review of Systems Constitutional: reports: Loss of Appetite, Weakness. denies: No Symptoms, Chills, Diaphoresis, Fever, Lethargy, Malaise, Night Sweats, Unintentional Wgt. Loss, Other Eyes: denies: No Symptoms, Blind Spots, Blurred Vision, Double Vision, Eye Pain , Floaters, Photophobia, Recent Change in Vision, Other HENT: denies: No Symptoms, Difficult Swallowing, Ear Discharge, Ear Pain, Epistaxis, Gingival Bleeding, Hearing Loss, Mouth Swelling, Nasal Congestion, Ocular Prosthesis, Throat Pain, Toothache, Ringing in Ears, Other Neck: denies: No Symptoms, Decreased ROM, Lumps, Pain on Movement, Stiffness, Swollen Glands, Tenderness, Other Cardiovascular: denies: No Symptoms, Chest Pain, Edema, Palpitations, Shortness of Breath, Other Respiratory: denies: No Symptoms, Cough, Exercise Intolerance, Hemoptysis, Orthopnea, PND, Snoring, SOB, SOB on Exertion, Wheezing, Other Gastrointestinal: reports: Abdominal Pain, Nausea, Vomiting. denies: No Symptoms, Bloating, Constipation, Diarrhea, Dysphagia, Indigestion, Melena, Rectal Bleeding, Vomiting Blood, Other Genitourinary: denies: No Symptoms, Burning, Discharge, Dysuria, Flank Pain, Frequency, Hematuria, Incontinence, Lesions, Menses, Pain, Testicular Mass, Testicular Pain, Testicular Swelling, Urgency, Vaginal Bleeding, Other Breasts: denies: No Symptoms Reported, See HPI, Breast Implants, Discharge from Nipple, Lumps, Pain, Skin Changes, Other Musculoskeletal: denies: No Symptoms, Back Pain, Crepitus, Decreased ROM, Extremity Pain, Joint Pain, Joint Swelling, Muscle Pain, Muscle Cramps, Muscle Weakness, Other Integumentary: denies: No Symptoms, Blister, Bruising, Change in Color, Eczema, Erythema, Incision, Lesions, Lump, Pallor, Pruritis, Rash, Wound, Other Neurological: denies: No Symptoms, Change in LOC, Change in Speech, Confusion, Dizziness, Headache, Incoordination, Numbness, Parasthesia, Pre-Existing Deficit , Seizure, Syncope, Tremors, Unsteady Gait, Weakness, Other Endocrine: denies: No Symptoms, Excessive Sweating, Flushing, Increased Hunger, Increased Thirst, Intolerance to Cold, Intolerance to Heat, Unexplained Weight Gain, Unexplained Weight Loss, Other Hematology/Lymphatic: denies: No Symptoms, Easily Bruised, Excessive Bleeding, Swollen Glands, Other Psychiatric: denies: No Symptoms, Altered Sleep Pattern, Anxiety, Depression, Hallucinations, Panic, Paranoia, Suicidal, Other - Risk Factors Known Risk Factors: Yes: Diabetes Mellitus, Hypercholesterolemia, Hypertension, Smoking Vital Signs: Vital Signs Temperature 98 F 08/06/16 06:32 Pulse Rate 72 08/06/16 11:06 Respiratory Rate 18 08/06/16 11:06 Blood Pressure 141/78 08/06/16 11:06 O2 Sat by Pulse Oximetry (%) 94 L 08/06/16 11:06 Constitutional: Yes: Well Nourished, No Distress, Calm Eyes: Yes: WNL, Conjunctiva Clear, EOM Intact HENT: Yes: WNL, Atraumatic, Normocephalic Neck: Yes: WNL, Supple, Trachea Midline Respiratory: Yes: WNL, Regular, CTA Bilaterally. No: Rales, Rhonchi, Wheezes Gastrointestinal: Yes: Normal Bowel Sounds, Tenderness, Epigastrium. No: Distention Renal/: Yes: WNL Cardiovascular: Yes: WNL, Regular Rate and Rhythm. No: Bradycardia, Tachycardia , Pulse Irregular, Gallop, Rub, Varicosities JVD: No Carotid Bruit: No PMI: Non-Displaced Heart Sounds: Yes: S1, S2. No: Split S2, S3, S4, Clicks, Gallop, Rub, Bruit Murmur: No: Systolic Murmur, Diastolic Murmur Musculoskeletal: Yes: WNL Extremities: Yes: WNL Edema: No Peripheral Pulses WNL: Yes Peripheral Pulses: 2+ Left Doralis Pedis, 2+ Right Dorsalis Pedis Integumentary: Yes: WNL Neurological: Yes: WNL, Alert, Oriented, Cran Nerves II-XII Intact ...Motor Strength: WNL Psychiatric: Yes: WNL, Alert, Oriented - Other Data Labs, Other Data: CBC, BMP 08/06/16 04:47 08/06/16 04:47 INR, PTT INR 1.04 (0.82-1.09) 08/05/16 22:50 Troponin, BNP 08/06/16 08/06/16 04:47 04:47 Troponin I Cancelled 0.11 H Troponin, BNP 08/06/16 08/06/16 04:47 04:47 Troponin I Cancelled 0.11 H ekg-nsr 82bpm, poor R progression, no sig ST abnl Echo: Report Reviewed Imaging - Results Chest X-ray: Report Reviewed, Image Reviewed EKG: Report Reviewed, Image Reviewed Other: Report Reviewed, Image Reviewed Problem List - Problems (1) Abdominal pain Code(s): R10.9 - UNSPECIFIED ABDOMINAL PAIN Qualifiers: Abdominal location: epigastric Qualified Code(s): R10.13 - Epigastric pain (2) Elevated troponin Code(s): R79.89 - OTHER SPECIFIED ABNORMAL FINDINGS OF BLOOD CHEMISTRY Assessment/Plan 65 year old woman with a history of HTN, HLD, DMII, presented with uncontrolled glucose, nausea, vomiting, epigastric pain. Pt. seen and examined in the er in nad. states she is feeling better but still has epigastric discomfort. denies having any chest pain. Elevated troponin-troponin slightly above upper limit of normal with normal CK level -pt denies ever having any chest pain or sob only abdominal pain, nausea, vomiting -unlikely type I IN -DM is severely uncontrolled -pt had an echo 07/04/16 that showed normal LV and RV size and function and no sig valvular abnl -nuclear stress test done 08/2015 in office, results unavailable -cardiac enzymes x 2 done only 5 hours apart were stable, would repeat another set -can dc tele, no arrhythmias and no abnl on echo -given multiple cardiac risk factors will consider further ischemic work up with another nuclear stress test or cardiac cath however this can likely be done as outpatient -pt needs aggressive risk factor treatment including smoking cessation -cont ASA 81mg daily, Lipitor, and Losartan for now -no need for full dose heparin for now HTN-above goal -re-evaluate after given home Losartan, if BP still above goal can uptitrate Losartan
[2016-08-06 13:32] LABS: PHOSPHOROUS 2.8 mg/dL (2.5-4.9); TROPONIN I 0.13 ng/ml (0.00-0.05)
[2016-08-06] MEDS ORDERED: ACETAMINOPHEN 325 MG TABLET (FP) ONE (17:48)
[2016-08-06] MEDS ORDERED: HEPARIN NA (PORCINE) 5,000 UNITS/ML 1ML VIAL ONE (21:05)
[2016-08-06] MEDS ORDERED: DOCUSATE SODIUM 100 MG CAPSULE (FP) PO ONE (21:05)
[2016-08-06] MEDS: DOCUSATE SODIUM 100 MG CAPSULE (FP) PO SCH (22:50)
[2016-08-06] MEDS: ATORVASTATIN CA 20 MG TABLET (FP) PO SCH (22:51)
[2016-08-07] MEDS: SODIUM CHLORIDE 0.45% 1,000 ML IV SCH ×2 (05:41→18:44)
[2016-08-07] MEDS: INSULIN SLIDING SCALE (NOVOLOG) 1 VIAL SQ SCH ×4 (06:01→21:36)
[2016-08-07] MEDS ORDERED: ACETAMINOPHEN 325 MG TABLET (FP) ONE (06:26)
[2016-08-07 06:40] LABS: BASOPHIL 0.6 % (0-2.0); EOSINOPHIL 2.7 % (0-4.5); MCH 29.5 pg (25.7-33.7); MCHC 33.6 g/dl (32.0-36.0); MEAN CELL VOLUME 87.9 fl (80-96); MEAN PLT VOLUME 9.2 fl (7.5-11.1); NEUTROPHILS 36.9 % (42.8-82.8); PLATELET COUNT 203 K/MM3 (134-434); RDW 14.6 % (11.6-15.6); WHITE BLOOD COUNT 8.1 K/mm3 (4.0-10.0)
[2016-08-07] MEDS: ACETAMINOPHEN 325 MG TABLET (FP) PO PRN (06:40)
[2016-08-07 07:10] LABS: ANION GAP 6 (8-16); CALCIUM 8.4 mg/dL (8.5-10.1); CO2 29 mmol/L (21-32); GLUCOSE,RANDOM 191 mg/dL (74-106); MAGNESIUM 1.9 mg/dL (1.8-2.4)
[2016-08-07 07:12] LABS: ALK PHOS 84 U/L (45-117); BILIRUBIN,TOTAL 0.5 mg/dL (0.2-1.0); CREATININE 0.5 mg/dL (0.55-1.02); PHOSPHOROUS 3.2 mg/dL (2.5-4.9); SGOT/AST 11 U/L (15-37); SGPT/ALT 17 U/L (12-78)
[2016-08-07] MEDS: POLYETHYLENE GLYCOL 3350 119 GM BTL PO SCH (10:53)
[2016-08-07] MEDS: ASPIRIN COATED 81 MG TABLET.EC PO SCH (11:05)
[2016-08-07] MEDS: OXYBUTYNIN CHLORIDE 5 MG TABLET PO SCH ×2 (11:05→21:30)
[2016-08-07] MEDS: PANTOPRAZOLE 20 MG TABLET (FP) PO SCH (11:05)
[2016-08-07] MEDS: LOSARTAN POTASSIUM 50 MG TABLET (FP) PO SCH (11:05)
[2016-08-07] MEDS: HEPARIN NA (PORCINE) 5,000 UNITS/ML 1ML VIAL SQ SCH ×2 (11:05→21:30)
--- NOTE | 2016-08-07 12:41 | PN ---
Progress Note, Physician History of Present Illness: seen and examined today in nad. no overnight events. no new complaints. - Current Medication List Current Medications: Active Medications Acetaminophen (Tylenol -) 650 mg PO Q4H PRN PRN Reason: FEVER OR PAIN Last Admin: 08/07/16 06:40 Dose: 650 mg Aspirin (Ecotrin -) 81 mg PO DAILY [facility] Last Admin: 08/07/16 11:05 Dose: 81 mg Atorvastatin Calcium (Lipitor -) 20 mg PO HS [facility] Last Admin: 08/06/16 22:51 Dose: 20 mg Docusate Sodium (Colace -) 300 mg PO HS [facility] Last Admin: 08/06/16 22:50 Dose: 300 mg Heparin Sodium (Porcine) (Heparin -) 5,000 unit SQ BID [facility] Last Admin: 08/07/16 11:05 Dose: 5,000 unit Sodium Chloride (1/2 Normal Saline) 1,000 mls @ 60 mls/hr IV ASDIR [facility] Last Admin: 08/07/16 05:41 Dose: Not Given Insulin Aspart (Novolog Vial Sliding Scale -) 1 vial SQ ACHS [facility] PRN Reason: Protocol Last Admin: 08/07/16 06:01 Dose: 4 units Losartan Potassium (Cozaar -) 50 mg PO DAILY [facility] Last Admin: 08/07/16 11:05 Dose: 50 mg Oxybutynin Chloride (Ditropan -) 5 mg PO BID [facility] Last Admin: 08/07/16 11:05 Dose: 5 mg Pantoprazole Sodium (Protonix -) 20 mg PO DAILY [facility] Last Admin: 08/07/16 11:05 Dose: 20 mg Polyethylene Glycol (Miralax (For Daily Use) -) 17 gm PO DAILY [facility] Last Admin: 08/07/16 10:53 Dose: Not Given - Objective Vital Signs: Vital Signs Temperature 97.9 F 08/07/16 08:32 Pulse Rate 80 08/07/16 11:06 Respiratory Rate 18 08/07/16 11:06 Blood Pressure 136/74 08/07/16 11:06 O2 Sat by Pulse Oximetry (%) 99 08/07/16 11:06 Constitutional: Yes: Well Nourished, No Distress, Calm Eyes: Yes: WNL, Conjunctiva Clear, EOM Intact, PERRL HENT: Yes: WNL, Atraumatic, Normocephalic Neck: Yes: WNL, Supple, Trachea Midline Cardiovascular: Yes: WNL, Regular Rate and Rhythm, S1, S2. No: Bradycardia, Tachycardia, Pulse Irregular, Bruit, JVD, Gallop, Murmur, Rub, S3, S4, Varicosities Respiratory: Yes: WNL, Regular, CTA Bilaterally. No: Rales, Rhonchi, Wheezes Gastrointestinal: Yes: WNL, Normal Bowel Sounds, Soft. No: Distention, Tenderness Musculoskeletal: Yes: WNL Extremities: Yes: WNL Edema: No Peripheral Pulses WNL: Yes Peripheral Pulses: Left Doralis Pedis: 2+, Right Dorsalis Pedis: 2+ Integumentary: Yes: WNL Neurological: Yes: WNL, Alert, Oriented, Cran Nerves II-XII Intact ...Motor Strength: WNL Psychiatric: Yes: WNL, Alert, Oriented Labs: CBC, BMP 08/07/16 06:10 08/07/16 06:10 INR, PTT INR 1.04 (0.82-1.09) 08/05/16 22:50 - ....Imaging Chest X-ray: Report Reviewed, Image Reviewed EKG: Report Reviewed, Image Reviewed Other: Report Reviewed, Image Reviewed Problem List - Problems (1) Abdominal pain Code(s): R10.9 - UNSPECIFIED ABDOMINAL PAIN Qualifiers: Abdominal location: epigastric Qualified Code(s): R10.13 - Epigastric pain (2) Elevated troponin Code(s): R79.89 - OTHER SPECIFIED ABNORMAL FINDINGS OF BLOOD CHEMISTRY Assessment/Plan 65 year old woman with a history of HTN, HLD, DMII, presented with uncontrolled glucose, nausea, vomiting, epigastric pain. Pt. seen and examined in the er in nad. states she is feeling better but still has epigastric discomfort. denies having any chest pain. Elevated troponin-troponin slightly above upper limit of normal with normal CK level, did not trend up significantly -pt denies ever having any chest pain or sob only abdominal pain, nausea, vomiting -unlikely type I NV -DM is severely uncontrolled -pt had an echo 07/04/16 that showed normal LV and RV size and function and no sig valvular abnl -nuclear stress test done 08/2015 in office, results unavailable -given multiple cardiac risk factors and mildly elevated troponin, will plan for a nuclear stress test, as of now will plan for tomorrow during admission but can consider as outpatient -pt needs aggressive risk factor treatment including smoking cessation -cont ASA 81mg daily, Lipitor, and Losartan HTN-adequately controlled today for now -cont Losartan
[2016-08-07] MEDS ORDERED: INSULIN (NOVOLOG) ASPART 100 UNITS/ML 10ML VIAL ONE (13:38)
--- NOTE | 2016-08-07 20:52 | PN ---
Progress Note, Physician History of Present Illness: No new complaints and is feeling better - Current Medication List Current Medications: Active Medications Acetaminophen (Tylenol -) 650 mg PO Q4H PRN PRN Reason: FEVER OR PAIN Last Admin: 08/07/16 06:40 Dose: 650 mg Aspirin (Ecotrin -) 81 mg PO DAILY [facility] Last Admin: 08/07/16 11:05 Dose: 81 mg Atorvastatin Calcium (Lipitor -) 20 mg PO HS [facility] Last Admin: 08/06/16 22:51 Dose: 20 mg Docusate Sodium (Colace -) 300 mg PO HS [facility] Last Admin: 08/06/16 22:50 Dose: 300 mg Heparin Sodium (Porcine) (Heparin -) 5,000 unit SQ BID [facility] Last Admin: 08/07/16 11:05 Dose: 5,000 unit Sodium Chloride (1/2 Normal Saline) 1,000 mls @ 60 mls/hr IV ASDIR [facility] Last Admin: 08/07/16 18:44 Dose: 60 mls/hr Insulin Aspart (Novolog Vial Sliding Scale -) 1 vial SQ ACHS [facility] PRN Reason: Protocol Last Admin: 08/07/16 16:48 Dose: 4 units Losartan Potassium (Cozaar -) 50 mg PO DAILY [facility] Last Admin: 08/07/16 11:05 Dose: 50 mg Oxybutynin Chloride (Ditropan -) 5 mg PO BID [facility] Last Admin: 08/07/16 11:05 Dose: 5 mg Pantoprazole Sodium (Protonix -) 20 mg PO DAILY [facility] Last Admin: 08/07/16 11:05 Dose: 20 mg Polyethylene Glycol (Miralax (For Daily Use) -) 17 gm PO DAILY [facility] Last Admin: 08/07/16 10:53 Dose: Not Given - Objective Vital Signs: Vital Signs Temperature 98.3 F 08/07/16 18:57 Pulse Rate 79 08/07/16 18:57 Respiratory Rate 20 08/07/16 18:57 Blood Pressure 147/90 08/07/16 18:57 O2 Sat by Pulse Oximetry (%) 100 08/07/16 18:15 Constitutional: Yes: Well Nourished Neck: Yes: Supple Cardiovascular: Yes: WNL, Regular Rate and Rhythm Respiratory: Yes: WNL, Regular, CTA Bilaterally Gastrointestinal: Yes: WNL, Normal Bowel Sounds, Soft Labs: CBC, BMP 08/07/16 06:10 08/07/16 06:10 INR, PTT INR 1.04 (0.82-1.09) 08/05/16 22:50 Problem List - Problems (1) Abdominal pain Assessment/Plan: Resolved Code(s): R10.9 - UNSPECIFIED ABDOMINAL PAIN Qualifiers: Abdominal location: epigastric Qualified Code(s): R10.13 - Epigastric pain (2) Elevated troponin Assessment/Plan: As per cardio Stress test in am Probable dc planning after stress test Code(s): R79.89 - OTHER SPECIFIED ABNORMAL FINDINGS OF BLOOD CHEMISTRY (3) Uncontrolled diabetes mellitus Assessment/Plan: Pt on jentadueta as out pt Will get endo consult Cont sliding scale Code(s): E11.65 - TYPE 2 DIABETES MELLITUS WITH HYPERGLYCEMIA (4) HTN (hypertension) Assessment/Plan: Cont losartan Code(s): I10 - ESSENTIAL (PRIMARY) HYPERTENSION (5) HLD (hyperlipidemia) Assessment/Plan: Cont lipitor Code(s): E78.5 - HYPERLIPIDEMIA, UNSPECIFIED
[2016-08-07] MEDS: DOCUSATE SODIUM 100 MG CAPSULE (FP) PO SCH (21:30)
[2016-08-07] MEDS: ATORVASTATIN CA 20 MG TABLET (FP) PO SCH (21:30)
[2016-08-07] MEDS ORDERED: PATIENT'S OWN MEDICATION (NON-FORMULARY) (Linagliptin/Metformin Hcl [Jentadueto 2.5 Mg-100 PO SCH (22:00)
--- NOTE | 2016-08-07 23:43 | EKG ---
Test Reason : Blood Pressure : / mmHG Vent. Rate : 082 BPM Atrial Rate : 082 BPM P-R Int : 174 ms QRS Dur : 088 ms QT Int : 378 ms P-R-T Axes : 075 012 034 degrees QTc Int : 441 ms NORMAL SINUS RHYTHM NORMAL ECG WHEN COMPARED WITH ECG OF 29-MAR-2016 17:58, NO SIGNIFICANT CHANGE WAS FOUND Confirmed by DELISA GRIFFITH MD ([id number]) on 08/07/2016 11:43:10 PM Referred By: Confirmed By:DELISA GRIFFITH MD
[2016-08-08] MEDS: SODIUM CHLORIDE 0.45% 1,000 ML IV SCH (06:44)
[2016-08-08] MEDS: metFORMIN HCL 500 MG TABLET (FP) PO SCH ×2 (06:44→16:59)
[2016-08-08] MEDS: INSULIN SLIDING SCALE (NOVOLOG) 1 VIAL SQ SCH ×4 (06:44→21:43)
[2016-08-08] MEDS: sitaGLIPtin PHOSPHATE 100 MG TABLET (FP) PO SCH (06:44)
[2016-08-08] MEDS: HEPARIN NA (PORCINE) 5,000 UNITS/ML 1ML VIAL SQ SCH ×2 (12:20→21:18)
[2016-08-08] MEDS: OXYBUTYNIN CHLORIDE 5 MG TABLET PO SCH ×2 (13:35→21:17)
[2016-08-08] MEDS: PANTOPRAZOLE 20 MG TABLET (FP) PO SCH (13:35)
[2016-08-08] MEDS: ASPIRIN COATED 81 MG TABLET.EC PO SCH (13:35)
[2016-08-08] MEDS: LOSARTAN POTASSIUM 50 MG TABLET (FP) PO SCH (13:36)
[2016-08-08] MEDS: POLYETHYLENE GLYCOL 3350 119 GM BTL PO SCH (13:36)
--- NOTE | 2016-08-08 13:48 | PN ---
Progress Note, Physician History of Present Illness: seen and examined today in nad. no overnight events. no new complaints. - Current Medication List Current Medications: Active Medications Acetaminophen (Tylenol -) 650 mg PO Q4H PRN PRN Reason: FEVER OR PAIN Last Admin: 08/07/16 06:40 Dose: 650 mg Aspirin (Ecotrin -) 81 mg PO DAILY [facility] Last Admin: 08/08/16 13:35 Dose: 81 mg Atorvastatin Calcium (Lipitor -) 20 mg PO HS [facility] Last Admin: 08/07/16 21:30 Dose: 20 mg Docusate Sodium (Colace -) 300 mg PO HS [facility] Last Admin: 08/07/16 21:30 Dose: 300 mg Heparin Sodium (Porcine) (Heparin -) 5,000 unit SQ BID [facility] Last Admin: 08/08/16 12:20 Dose: Not Given Sodium Chloride (1/2 Normal Saline) 1,000 mls @ 60 mls/hr IV ASDIR [facility] Last Admin: 08/08/16 06:44 Dose: Not Given Insulin Aspart (Novolog Vial Sliding Scale -) 1 vial SQ ACHS [facility] PRN Reason: Protocol Last Admin: 08/08/16 12:20 Dose: Not Given Losartan Potassium (Cozaar -) 50 mg PO DAILY [facility] Last Admin: 08/08/16 13:36 Dose: 50 mg Metformin HCl (Glucophage -) 1,000 mg PO BIDAC [facility] Last Admin: 08/08/16 06:44 Dose: Not Given Oxybutynin Chloride (Ditropan -) 5 mg PO BID [facility] Last Admin: 08/08/16 13:35 Dose: 5 mg Pantoprazole Sodium (Protonix -) 20 mg PO DAILY [facility] Last Admin: 08/08/16 13:35 Dose: 20 mg Polyethylene Glycol (Miralax (For Daily Use) -) 17 gm PO DAILY [facility] Last Admin: 08/08/16 13:36 Dose: 17 gm Sitagliptin Phosphate (Januvia -) 100 mg PO AM [facility] Last Admin: 08/08/16 06:44 Dose: Not Given - Objective Vital Signs: Vital Signs Temperature 97.9 F 08/08/16 10:00 Pulse Rate 63 08/08/16 10:00 Respiratory Rate 20 08/08/16 10:00 Blood Pressure 140/71 08/08/16 10:00 O2 Sat by Pulse Oximetry (%) 100 08/08/16 09:00 Constitutional: Yes: Well Nourished, No Distress, Calm Eyes: Yes: WNL, Conjunctiva Clear, EOM Intact, PERRL HENT: Yes: WNL, Atraumatic, Normocephalic Neck: Yes: WNL, Supple, Trachea Midline Cardiovascular: Yes: WNL, Regular Rate and Rhythm, S1, S2. No: Bradycardia, Tachycardia, Pulse Irregular, Bruit, JVD, Gallop, Murmur, Rub, S3, S4, Varicosities Respiratory: Yes: WNL, Regular, CTA Bilaterally. No: Rales, Rhonchi, Wheezes Gastrointestinal: Yes: WNL, Normal Bowel Sounds, Soft. No: Distention, Tenderness Musculoskeletal: Yes: WNL Extremities: Yes: WNL Edema: No Peripheral Pulses WNL: Yes Peripheral Pulses: Left Doralis Pedis: 2+, Right Dorsalis Pedis: 2+ Integumentary: Yes: WNL Neurological: Yes: WNL, Alert, Oriented, Cran Nerves II-XII Intact ...Motor Strength: WNL Psychiatric: Yes: WNL, Alert, Oriented Labs: CBC, BMP 08/07/16 06:10 08/07/16 06:10 INR, PTT INR 1.04 (0.82-1.09) 08/05/16 22:50 - ....Imaging Chest X-ray: Report Reviewed, Image Reviewed EKG: Report Reviewed, Image Reviewed Other: Report Reviewed, Image Reviewed Problem List - Problems (1) Abdominal pain Code(s): R10.9 - UNSPECIFIED ABDOMINAL PAIN Qualifiers: Abdominal location: epigastric Qualified Code(s): R10.13 - Epigastric pain (2) Elevated troponin Code(s): R79.89 - OTHER SPECIFIED ABNORMAL FINDINGS OF BLOOD CHEMISTRY Assessment/Plan 65 year old woman with a history of HTN, HLD, DMII, presented with uncontrolled glucose, nausea, vomiting, epigastric pain. Pt. seen and examined in the er in nad. states she is feeling better but still has epigastric discomfort. denies having any chest pain. Elevated troponin-troponin slightly above upper limit of normal with normal CK level, did not trend up significantly -pt denies ever having any chest pain or sob only abdominal pain, nausea, vomiting -unlikely type I MA -DM is severely uncontrolled -pt had an echo 07/04/16 that showed normal LV and RV size and function and no sig valvular abnl -nuclear stress test done 08/2015 in office, results unavailable -f/up nuclear stress test today to re-evaluate for ischemia -pt needs aggressive risk factor treatment including smoking cessation -cont ASA 81mg daily, Lipitor, and Losartan -if no ischemia on nuclear stress test today pt would be acceptable for discharge home from a cardiac standpoint HTN-adequately controlled today for now -cont Losartan
--- NOTE | 2016-08-08 16:32 | PN ---
Progress Note (short form) - Note Progress Note: stress test reviewed, no ischemia. echo with no sig structural heart disease. pt is acceptable for discharge home from a cardiac standpoint. Problem List - Problems (1) Abdominal pain Code(s): R10.9 - UNSPECIFIED ABDOMINAL PAIN Qualifiers: Abdominal location: epigastric Qualified Code(s): R10.13 - Epigastric pain (2) Elevated troponin Code(s): R79.89 - OTHER SPECIFIED ABNORMAL FINDINGS OF BLOOD CHEMISTRY
[2016-08-08] MEDS ORDERED: INSULIN (NOVOLOG) ASPART 100 UNITS/ML 10ML VIAL ONE (17:01)
[2016-08-08] MEDS ORDERED: GLIMEPIRIDE 2 MG TABLET (FP) PO ONE (18:33)
--- NOTE | 2016-08-08 18:40 | CONSULT ---
Consult Consult Specialty:: endocrine Referred by:: Reason for Consultation:: diabetes mellitus - History of Present Illness Chief Complaint: high sugars History of Present Illness: 65 year old woman with a past medical of NIDDM, HTN, HLD, Ulcer, Smoker. Who presents to the emergency department with elevated blood sugar, chest pain and epigastric pain x last night. Patient reports the quality of the CP as a dull ache with burning to her epigastrium. has elevated blood sugars,difficulty with diet,no hypoglycemia - History Source History Provided By: Patient - Past Medical History Cardio/Vascular: Yes: HTN, Hyperlipdemia Gastrointestinal: Yes: Other (Had EGD and reports an abnormality on upper endoscopy, details unclear.) Renal/: Yes: Renal Calculi (> 10 years ago) Endocrine: Yes: Diabetes Mellitus - Alcohol/Substance Use Hx Alcohol Use: No History of Substance Use: reports: None - Smoking History Smoking history: Current every day smoker Have you smoked in the past 12 months: Yes Aproximately how many cigarettes per day: 10 - Social History ADL: Independent History of Recent Travel: No Home Medications - Allergies Allergies/Adverse Reactions: Allergies Allergy/AdvReac Type Severity Reaction Status Date / Time No Known Drug Allergies Allergy Verified 08/05/16 22:09 - Home Medications Home Medications: Ambulatory Orders Aspirin Coated [Ecotrin -] 81 mg PO DAILY 03/14/16 Atorvastatin Ca [Lipitor] 20 mg PO HS 03/15/16 Linagliptin/Metformin HCl [Jentadueto 2.5 mg-1000 mg Tab] 1 each PO BID Losartan/Hydrochlorothiazide [Losartan-Hctz 50-12.5 mg Tab] 1 each PO DAILY Oxybutynin Chloride 5 mg PO BID 03/15/16 Metformin HCl 500 mg PO BID 08/06/16 Review of Systems - Review of Systems Constitutional: reports: Weakness Eyes: reports: No Symptoms HENT: reports: No Symptoms Neck: reports: No Symptoms Cardiovascular: reports: Chest Pain Respiratory: reports: No Symptoms Gastrointestinal: reports: No Symptoms Genitourinary: reports: No Symptoms Musculoskeletal: reports: No Symptoms Integumentary: reports: No Symptoms Neurological: reports: No Symptoms Endocrine: reports: Unexplained Weight Gain Physical Exam Vital Signs: Vital Signs Temperature 97.7 F 08/08/16 13:47 Pulse Rate 73 08/08/16 13:47 Respiratory Rate 20 08/08/16 13:47 Blood Pressure 152/68 08/08/16 13:47 O2 Sat by Pulse Oximetry (%) 100 08/08/16 09:00 Constitutional: Yes: Calm Eyes: Yes: EOM Intact HENT: Yes: Normocephalic Neck: Yes: Trachea Midline Cardiovascular: Yes: Regular Rate and Rhythm Respiratory: Yes: CTA Bilaterally Gastrointestinal: Yes: Normal Bowel Sounds ...Rectal Exam: Yes: Deferred Renal/: Yes: WNL Musculoskeletal: Yes: WNL Extremities: Yes: WNL Neurological: Yes: WNL Labs: CBC, BMP 08/07/16 06:10 08/07/16 06:10 Problem List - Problems (1) Type 2 diabetes mellitus with diabetic neuropathy Code(s): E11.40 - TYPE 2 DIABETES MELLITUS WITH DIABETIC NEUROPATHY, UNSP Assessment/Plan Current Active Problems Abdominal pain (Acute) Elevated troponin (Acute) HLD (hyperlipidemia) (Acute) HTN (hypertension) (Acute) Uncontrolled diabetes mellitus (Acute) Abnormal Lab Results 08/08/16 06:20 Hemoglobin A1c % 12.0 H D Laboratory Results - last 24 hr 08/06/16 08/07/16 08/07/16 22:41 05:39 21:33 POC Glucometer 231.14725 249.90035 155 Hemoglobin A1c % 08/08/16 08/08/16 08/08/16 06:20 06:43 12:08 POC Glucometer 213 208 Hemoglobin A1c % 12.0 H D 08/08/16 16:58 POC Glucometer 298 Hemoglobin A1c % Current Medications Generic Name Dose Route Start Last Admin Trade Name Robert PRN Reason Stop Dose Admin Acetaminophen 650 mg 08/06/16 17:59 08/07/16 06:40 Tylenol - PO 650 mg Q4H PRN Administration FEVER OR PAIN Aspirin 81 mg 08/06/16 10:00 08/08/16 13:35 Ecotrin - PO 81 mg DAILY [facility] Administration Atorvastatin Calcium 20 mg 08/06/16 22:00 08/07/16 21:30 Lipitor - PO 20 mg HS [facility] Administration Docusate Sodium 300 mg 08/06/16 22:00 08/07/16 21:30 Colace - PO 300 mg HS [facility] Administration Heparin Sodium (Porcine) 5,000 unit 08/06/16 10:00 08/08/16 12:20 Heparin - SQ Not Given BID [facility] Sodium Chloride 1,000 mls @ 60 mls/hr 08/06/16 04:30 08/08/16 06:44 1/2 Normal Saline IV Not Given ASDIR [facility] Insulin Aspart 1 vial 08/06/16 07:00 08/08/16 17:04 Novolog Vial Sliding Scale - SQ 6 units ACHS [facility] Administration Protocol Losartan Potassium 50 mg 08/06/16 10:00 08/08/16 13:36 Cozaar - PO 50 mg DAILY [facility] Administration Metformin HCl 1,000 mg 08/08/16 07:00 08/08/16 16:59 Glucophage - PO 1,000 mg BIDAC [facility] Administration Oxybutynin Chloride 5 mg 08/06/16 10:00 08/08/16 13:35 Ditropan - PO 5 mg BID [facility] Administration Pantoprazole Sodium 20 mg 08/07/16 10:00 08/08/16 13:35 Protonix - PO 20 mg DAILY [facility] Administration Polyethylene Glycol 17 gm 08/07/16 10:00 08/08/16 13:36 Miralax (For Daily Use) - PO 17 gm DAILY [facility] Administration Sitagliptin Phosphate 100 mg 08/08/16 07:00 08/08/16 06:44 Januvia - PO Not Given AM [facility] plan: nutrition consult ada diet plan Januvia 100mg daily metformin 1gm bid glimipiride 2 mg daily
--- NOTE | 2016-08-08 21:09 | PN ---
Progress Note, Physician History of Present Illness: No new complaints and is feeling better - Current Medication List Current Medications: Active Medications Acetaminophen (Tylenol -) 650 mg PO Q4H PRN PRN Reason: FEVER OR PAIN Last Admin: 08/07/16 06:40 Dose: 650 mg Aspirin (Ecotrin -) 81 mg PO DAILY [facility] Last Admin: 08/08/16 13:35 Dose: 81 mg Atorvastatin Calcium (Lipitor -) 20 mg PO HS [facility] Last Admin: 08/07/16 21:30 Dose: 20 mg Docusate Sodium (Colace -) 300 mg PO HS [facility] Last Admin: 08/07/16 21:30 Dose: 300 mg Heparin Sodium (Porcine) (Heparin -) 5,000 unit SQ BID [facility] Last Admin: 08/08/16 12:20 Dose: Not Given Insulin Aspart (Novolog Vial Sliding Scale -) 1 vial SQ ACHS [facility] PRN Reason: Protocol Last Admin: 08/08/16 17:04 Dose: 6 units Losartan Potassium (Cozaar -) 50 mg PO DAILY [facility] Last Admin: 08/08/16 13:36 Dose: 50 mg Metformin HCl (Glucophage -) 1,000 mg PO BIDAC [facility] Last Admin: 08/08/16 16:59 Dose: 1,000 mg Oxybutynin Chloride (Ditropan -) 5 mg PO BID [facility] Last Admin: 08/08/16 13:35 Dose: 5 mg Pantoprazole Sodium (Protonix -) 20 mg PO DAILY [facility] Last Admin: 08/08/16 13:35 Dose: 20 mg Polyethylene Glycol (Miralax (For Daily Use) -) 17 gm PO DAILY [facility] Last Admin: 08/08/16 13:36 Dose: 17 gm Sitagliptin Phosphate (Januvia -) 100 mg PO AM [facility] Last Admin: 08/08/16 06:44 Dose: Not Given - Objective Vital Signs: Vital Signs Temperature 97.9 F 08/08/16 20:46 Pulse Rate 72 08/08/16 20:46 Respiratory Rate 19 08/08/16 20:46 Blood Pressure 120/87 08/08/16 20:46 O2 Sat by Pulse Oximetry (%) 100 08/08/16 20:53 Constitutional: Yes: Well Nourished HENT: Yes: WNL Neck: Yes: Supple Cardiovascular: Yes: WNL, Regular Rate and Rhythm Respiratory: Yes: WNL, Regular, CTA Bilaterally Gastrointestinal: Yes: WNL, Normal Bowel Sounds, Soft Labs: CBC, BMP 08/07/16 06:10 08/07/16 06:10 INR, PTT INR 1.04 (0.82-1.09) 08/05/16 22:50 Problem List - Problems (1) Uncontrolled diabetes mellitus Assessment/Plan: Long d/w pt about need for compliance and f/u as outpt DC planning for am Endo consult noted Code(s): E11.65 - TYPE 2 DIABETES MELLITUS WITH HYPERGLYCEMIA (2) Abdominal pain Assessment/Plan: Resolved Code(s): R10.9 - UNSPECIFIED ABDOMINAL PAIN Qualifiers: Abdominal location: epigastric Qualified Code(s): R10.13 - Epigastric pain (3) Elevated troponin Assessment/Plan: Stress test was normal DC planning in am Code(s): R79.89 - OTHER SPECIFIED ABNORMAL FINDINGS OF BLOOD CHEMISTRY (4) HTN (hypertension) Code(s): I10 - ESSENTIAL (PRIMARY) HYPERTENSION (5) HLD (hyperlipidemia) Code(s): E78.5 - HYPERLIPIDEMIA, UNSPECIFIED
[2016-08-08] MEDS: DOCUSATE SODIUM 100 MG CAPSULE (FP) PO SCH (21:17)
[2016-08-08] MEDS: ATORVASTATIN CA 20 MG TABLET (FP) PO SCH (21:17)
[2016-08-09] MEDS: ACETAMINOPHEN 325 MG TABLET (FP) PO PRN (01:58)
[2016-08-09] MEDS: metFORMIN HCL 500 MG TABLET (FP) PO SCH (06:30)
[2016-08-09] MEDS: sitaGLIPtin PHOSPHATE 100 MG TABLET (FP) PO SCH (06:30)
[2016-08-09] MEDS: INSULIN SLIDING SCALE (NOVOLOG) 1 VIAL SQ SCH ×2 (06:32→11:28)
[2016-08-09 09:29] VITALS: BP 138/71; PULSE 65; TEMP 98.2
[2016-08-09] MEDS: ASPIRIN COATED 81 MG TABLET.EC PO SCH (09:34)
[2016-08-09] MEDS: PANTOPRAZOLE 20 MG TABLET (FP) PO SCH (09:34)
[2016-08-09] MEDS: OXYBUTYNIN CHLORIDE 5 MG TABLET PO SCH (09:34)
[2016-08-09] MEDS: LOSARTAN POTASSIUM 50 MG TABLET (FP) PO SCH (09:34)
[2016-08-09] MEDS: HEPARIN NA (PORCINE) 5,000 UNITS/ML 1ML VIAL SQ SCH (09:34)
[2016-08-09] MEDS: POLYETHYLENE GLYCOL 3350 119 GM BTL PO SCH (09:34)
[2016-08-09] MEDS ORDERED: INSULIN (NOVOLOG) ASPART 100 UNITS/ML 10ML VIAL ONE (11:23)
== END 2016-08-09 14:18 | disposition home or self-care (01) | DRG 639 ==
LOC: JER 22:05 → JERBED 08-06 02:09 → J4W 08-07 14:56 → J7W 08-07 18:26
PROVIDERS: ADMIT Internal Medicine; ATTEND Internal Medicine
DX: E11.65 Type 2 diabetes mellitus with hyperglycemia (principal); E11.40 Type 2 diabetes mellitus with diabetic neuropathy, unspecified; Z79.84 Long term (current) use of oral hypoglycemic drugs; I10 Essential (primary) hypertension; E78.5 Hyperlipidemia, unspecified; F17.210 Nicotine dependence, cigarettes, uncomplicated; R79.89 Other specified abnormal findings of blood chemistry; R10.13 Epigastric pain; E83.42 Hypomagnesemia; Z87.11 Personal history of peptic ulcer disease
CPT/HCPCS: 36415; 71010-TC; 78452-TC; 80048; 80053; 80061; 81003; 82009; 82550; 83036; 83605; 83721; 83735; 84100; 84484; 85025; 85610; 85730; 87040; 87086; 93005; 93010; 93017; 93306-TC; 99285-25; A9502; J1644

== ENCOUNTER 2018-05-02 13:59 | Emergency (ER) | payer MEDICARE ==
[2018-05-02 14:19] VITALS: BP 154/104; PULSE 112; TEMP 98.7; BMI 22.1
[2018-05-02] MEDS ORDERED: DIPHTH,PERTUSS(ACELL),TET 0.5 ML DISP.SYRIN IM ONE (14:44)
--- NOTE | 2018-05-02 14:48 | PDOC ---
History of Present Illness - General Chief Complaint: Bite Stated Complaint: Bite Time Seen by Provider: 05/02/18 14:38 - History of Present Illness Initial Comments: 05/02/18 14:44 67-year-old female with past medical history significant for diabetes hypertension and dyslipidemia presents for mouse bite on her right fifth finger. She states she caught a mouse in a glue trap while closing the trap the mouse bit her finger. She has no other associated symptoms besides localized discomfort Past History - Past Medical History Allergies/Adverse Reactions: Allergies Allergy/AdvReac Type Severity Reaction Status Date / Time No Known Drug Allergies Allergy Verified 05/02/18 14:14 Home Medications: Ambulatory Orders Aspirin Coated [Ecotrin -] 81 mg PO DAILY 03/14/16 Atorvastatin Ca [Lipitor] 20 mg PO HS 03/15/16 Losartan/Hydrochlorothiazide [Losartan-Hctz 50-12.5 mg Tab] 1 each PO DAILY Oxybutynin Chloride 5 mg PO BID 03/15/16 metFORMIN HCL [Metformin HCl] 500 mg PO BID 08/06/16 Docusate Sodium [Colace -] 300 mg PO HS #30 capsule 08/09/16 Pantoprazole Sodium [Protonix -] 20 mg PO DAILY #30 tablet.ec 08/09/16 Polyethylene Glycol 3350 [Miralax 119 gm Btl -] 17 gm PO DAILY #30 bottle Metformin HCl 500 gm MC BID #60 powder 02/28/18 Amox-Tr/K Cl [Augmentin - 875Mg Tablet] 1 tab PO BID #20 tablet 05/02/18 Anemia: No Asthma: No Cancer: No Cardiac Disorders: Yes (denies) CVA: No COPD: No CHF: No Dementia: No Diabetes: Yes GI Disorders: Yes (ulcers) Disorders: No HTN: Yes Hypercholesterolemia: Yes Liver Disease: No Seizures: No Thyroid Disease: No - Surgical History Abdominal Surgery: No Appendectomy: No Cardiac Surgery: No Cholecystectomy: No Lung Surgery: No Orthopedic Surgery: No - Immunization History Immunization Up to Date: Yes - Suicide/Smoking/Psychosocial Hx Smoking Status: Yes Smoking History: Unknown if ever smoked Have you smoked in the past 12 months: Yes Number of Cigarettes Smoked Daily: 6 'Breaking Loose' booklet given: 02/27/18 Hx Alcohol Use: No Drug/Substance Use Hx: No Substance Use Type: None Hx Substance Use Treatment: No Review of Systems - Review of Systems Integumentary: Yes: See HPI *Physical Exam - Vital Signs Last Vital Signs Temp Pulse Resp BP Pulse Ox 98.7 F 112 H 18 154/104 H 99 05/02/18 14:18 05/02/18 14:18 05/02/18 14:18 05/02/18 14:18 05/02/18 14:18 - Physical Exam Comments: HEAD: NC/AT EYES: Conjuntiva clear MS: Full ROM in all joints without edema NEUROLOGIC: No gross sensory or motor deficits, NVID SKIN: Normal color and temperature there is a superficial laceration on the volar aspect of the right fifth finger on the skin overlying the distal phalanx. No gross sensorimotor deficits. 05/02/18 14:45 Medical Decision Making - Medical Decision Making 05/02/18 14:46 She does not require rabies vaccination tetanus shot updated prophylactic antibiotics prescribed. *DC/Admit/Observation/Transfer Diagnosis at time of Disposition: Non-rat rodent bite - Discharge Dispostion Disposition: HOME Condition at time of disposition: Stable Decision to Admit order: No - Prescriptions Prescriptions: Amox-Tr/K Cl [Augmentin - 875Mg Tablet] 1 tab PO BID #20 tablet - Referrals Referrals: Linden Parker MD [Primary Care Provider] - - Patient Instructions Printed Discharge Instructions: DI for Animal Bites, Animal Bites Additional Instructions: Your tetanus shot was updated today. Please take and finish the antibiotics that I have prescribed fever. Follow-up with your primary care physician in one to 2 days for further evaluation and treatment options. He did not require rabies shots injections. Keep the area clean with soap and water and open to air return to the emergency room should symptoms worsen or go unresolved or if you develop redness pain or drainage in the area of the bite - Post Discharge Activity
== END 2018-05-02 15:07 | disposition home or self-care (01) ==
LOC: JERFT 13:59
PROC: 3E0234Z Introduction of Serum, Toxoid and Vaccine into Muscle, Percutaneous Approach (ICD-10-PCS; principal; 2018-05-02)
DX: S61.256A Open bite of right little finger without damage to nail, initial encounter (principal); W53.01XA Bitten by mouse, initial encounter; Y93.89 Activity, other specified; Y92.009 Unspecified place in unspecified non-institutional (private) residence as the place of occurrence of the external cause; I10 Essential (primary) hypertension; E11.9 Type 2 diabetes mellitus without complications; E78.00 Pure hypercholesterolemia, unspecified
CPT/HCPCS: 90715; 99281-25

== ENCOUNTER 2019-08-30 07:00 | Emergency (ER) | payer OTHER ==
[2019-08-30] MEDS ORDERED: MAGNESIUM CITRATE 300 ML BOTTLE PO ONE (08:06)
--- NOTE | 2019-08-30 08:12 | PDOC ---
*Physical Exam - Vital Signs Last Vital Signs Temp Pulse Resp BP Pulse Ox 98.0 F 82 16 149/73 100 08/30/19 07:00 08/30/19 07:00 08/30/19 07:00 08/30/19 07:00 08/30/19 07:00 Medical Decision Making - Medical Decision Making 08/30/19 08:08 Patient seen as pre-attending w/Dr. Gregory (PGY-1, Internal Medicine) 68 y/o female with a PMHx of HTN, IDDM, Peripheral neuropathy BIBEMS for hypoglycemia. Reports she measured her blood sugar this morning at home and it was in the 30's prompting her to call EMS. States she checked her blood sugar yesterday evening around 7 p.m. and it was 206. Patient subsequently took 26 units and 8 units of insulin (cannot recall the name of her insulin). Has previously scheduled appointment with her PMD, Dr. Parker, for this coming Monday. Also c/o constipation. Will recheck BS and magnesium citrate for symptomatic relief of constipation. Patient counseled on importance of blood glucose control. 08/30/19 08:13 BS 179 08/30/19 08:34 Patient tearful on attending exam. Will give 0.5 Xanax 08/30/19 08:59 D/C home with return precautions, instruction to f/u with PMD. 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
--- NOTE | 2019-08-30 08:14 | PDOC ---
History of Present Illness - General Chief Complaint: Blood Pressure Problem Stated Complaint: BLOOD PRESSURE PROBLEM Time Seen by Provider: 08/30/19 07:25 - History of Present Illness Initial Comments: 08/30/19 08:08 68 y/o F with PMH of HTN, DM with neuropathy, HLD, presents to the ED by EMS because of hypoglycemia in the 30s at home. Pt explains that she measured her sugar this morning and noted it to be 30 prompting EMS call. She subsequently ingested a spoonful of sugar and then a slice of bread. On EMS arrival, Pt was provided with a sugar tablet and remeasured sugar was noted to be 150. Pt complains of fluctuations in her blood sugars for which she is scheduled to see her PCP Dr Linden Parker this coming monday. Pt explains that she is prescribed too many medications and as a result only take her DM and HTN medications. She also c/o constipation. Of note, Pt was tearful as she feels overwhelmed with the upcoming anniversary of the of her mother and the of her brothers. She denies SI. She denies any chest pain, SOB, F/C/N/V/D. PSH: None Social Hx: 3 cig once in a while; actively trying to quit PE: Gen: NAD Chest: Vesicular breath sounds b/l Heart: RRR no MRG Abdomen: +BS, mild tender, ND, no HSM Extremities: no edema 2+ pulses Assessment: based on HPI and PE: most likely hypoglycemic due to insulin regimen. 08/30/19 08:18 Plan: will recheck BG and BP 08/30/19 08:23 BGM 176 and BP 149/73 08/30/19 08:34 as pt is due to see her PCP on monday for her Diabetes medications, will discharge pt with close follow up with her PCP and with magnesium citrate to help with her constipation 08/30/19 08:44 Past History - Past Medical History Allergies/Adverse Reactions: Allergies Allergy/AdvReac Type Severity Reaction Status Date / Time No Known Drug Allergies Allergy Verified 08/30/19 07:32 Home Medications: Ambulatory Orders Aspirin Coated [Ecotrin -] 81 mg PO DAILY 03/14/16 Atorvastatin Ca [Lipitor] 20 mg PO HS 03/15/16 Losartan/Hydrochlorothiazide [Losartan-Hctz 50-12.5 mg Tab] 1 each PO DAILY Oxybutynin Chloride 5 mg PO BID 03/15/16 metFORMIN HCL [Metformin HCl] 500 mg PO BID 08/06/16 Docusate Sodium [Colace -] 300 mg PO HS #30 capsule 08/09/16 Pantoprazole Sodium [Protonix -] 20 mg PO DAILY #30 tablet.ec 08/09/16 Polyethylene Glycol 3350 [Miralax 119 gm Btl -] 17 gm PO DAILY #30 bottle Metformin HCl 500 gm MC BID #60 powder 02/28/18 Amox-Tr/K Cl [Augmentin - 875Mg Tablet] 1 tab PO BID #20 tablet 05/02/18 Anemia: No Asthma: No Cancer: No Cardiac Disorders: Yes (denies) CVA: No COPD: No CHF: No Dementia: No Diabetes: Yes GI Disorders: Yes (ulcers) Disorders: No HTN: Yes Hypercholesterolemia: Yes Liver Disease: No Seizures: No Thyroid Disease: No - Surgical History Abdominal Surgery: No Appendectomy: No Cardiac Surgery: No Cholecystectomy: No Lung Surgery: No Orthopedic Surgery: No - Immunization History Immunization Up to Date: Yes - Psycho Social/Smoking Cessation Hx Smoking Status: Yes Smoking History: Unknown if ever smoked Have you smoked in the past 12 months: Yes Number of Cigarettes Smoked Daily: 6 'Breaking Loose' booklet given: 02/27/18 Hx Alcohol Use: No Drug/Substance Use Hx: No Substance Use Type: None Hx Substance Use Treatment: No Review of Systems - Review of Systems Able to Perform ROS?: Yes Is the patient limited Maltese proficient: No Constitutional: No: Chills, Fever, Night Sweats, Weakness HEENTM: No: Blurred Vision, Recent change in vision Respiratory: No: Cough, Shortness of Breath, Wheezing Cardiac (ROS): No: Chest Pain, Edema, Lightheadedness, Palpitations ABD/GI: No: Abdominal Distended, Constipated, Diarrhea, Nausea, Vomiting : No: Burning, Dysuria, Frequency, Hematuria Musculoskeletal: No: Back Pain, Joint Pain, Joint Swelling, Muscle Weakness Integumentary: No: Bruising, Change in Color, Erythema, Flushing Neurological: Yes: Headache. 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
[2019-08-30 08:15] VITALS: TEMP 98; BMI 23.6
[2019-08-30] MEDS ORDERED: MAGNESIUM CITRATE 300 ML BOTTLE ONE (08:15)
[2019-08-30] MEDS ORDERED: ALPRAZolam 0.25 MG TABLET PO ONE (08:33)
--- NOTE | 2019-08-30 08:39 | PDOC ---
Attending Attestation - Resident Resident Name: Vanessa Gregory - ED Attending Attestation I have performed the following: I have examined & evaluated the patient, The case was reviewed & discussed with the resident, I agree w/resident's findings & plan - HPI HPI: 08/30/19 08:39 68 y/o F with PMH of HTN, DM with neuropathy, HLD, presents to the ED by EMS because of hypoglycemia in the 30s at home. Pt explains that she measured her sugar this morning and noted it to be 30 prompting EMS call. She subsequently ingested a spoonful of sugar and then a slice of bread. On EMS arrival, Pt was provided with a sugar tablet and remeasured sugar was noted to be 150. Pt explains that she is prescribed too many medications and 68 yo F w a hx of T2DM, HTN and HLD presenting with hypoglycemia and HTN. BS noted to be in 30s this morning, she consumed a spoonful of sugar and bread afterwards. upon EMS arrival, she was given glucose and BS measured to be 150 and normal. Pt complains of fluctuations in her blood sugars for which she is scheduled to see her PCP Dr Linden Parker this coming monday in 3 days. She also c/o constipation x 3 days. no changes in diet or medications. she also notes h/o depression with stressors including passing of family members over the past 2 years and anniversary of her mother's in 1 month. no SI or HI or hallucinations. She denies any chest pain, SOB, F/C/N/V/D. no urinary sx. no recent illness, respiratory infections. no syncope. no weakness or paresthesias. 08/30/19 08:40 08/30/19 08:41 - Physicial Exam PE: 08/30/19 08:39 Agree with the resident's HPI and PE as documented in the electronic medical record. awake and alert, EOMI, PERRL, nl conjunctiva, anicteric; neck supple. lungs clear, RRR, abdomen soft nontender. No rebound, no guarding. Back nontender. SMITH x4, no focal neuro deficits. No peripheral edema. normal color for ethnicity , WWP. no SI or HI +tearful normal mood and affect. no hallucinations. cooperative. 08/30/19 08:45 - Medical Decision Making 02/14/20 08:39 Vital Signs Temp Pulse Resp BP Pulse Ox 98.0 F 82 16 149/73 100 08/30/19 07:00 08/30/19 07:00 08/30/19 07:00 08/30/19 07:00 08/30/19 07:00 VS reviewed wnl. BS normal here mentating, neuro intact no high risk features, no syncope no cp or sob. BP measured, mildly hypertensive, but otherwise asymptomatic compliant with meds anxiolysis given, her stressors no indication for labs or imaging or further workup abdomen soft, nontender. no peritoneal findings constipation care, high fiber diet, mg citrate administered to help with BM regular meals and hydration advised. pt has primary follow up in 3 days, told to keep appt Pt to be discharged in stable condition. Patient made aware of clinical impression, treatment recommendations and disposition plan, return precautions discussed (including but not limited to new or persistent/worsening symptoms, pain, fevers, or signs of infection, chest pain, respiratory distress, inability to tolerate oral intake, dehydration, syncope, or neurologic changes) . Follow up with PMD and/or specialist as recommended, follow up information provided, take medications as instructed for duration of time. continue with supportive care, avoid triggers and precipitants. All questions answered to patient's satisfaction and expressed understanding and comfort with this. At the time of discharge, the patient is alert, clinically improved, tolerating po and verbalizes understanding of instructions, satisfied with the care received and felt comfortable with the plan. Patient does not suffer from an acute life- threatening medical condition at this time and is safe for outpatient follow- up. 08/30/19 08:46
[2019-08-30] MEDS ORDERED: ALPRAZolam 0.25 MG TABLET ONE (08:53)
[2019-08-30 09:11] VITALS: BP 146/66; PULSE 76
== END 2019-08-30 09:13 | disposition home or self-care (01) ==
LOC: JER 07:00
DX: E11.42 Type 2 diabetes mellitus with diabetic polyneuropathy (principal); E11.49 Type 2 diabetes mellitus with other diabetic neurological complication; Z79.84 Long term (current) use of oral hypoglycemic drugs; I10 Essential (primary) hypertension; E78.00 Pure hypercholesterolemia, unspecified; Z87.19 Personal history of other diseases of the digestive system
CPT/HCPCS: 82962; 99283-25

== ENCOUNTER 2021-08-07 16:31 | Emergency (ER) | payer OTHER ==
[2021-08-07 16:47] VITALS: TEMP 98.5; BMI 27.4
[2021-08-07] MEDS ORDERED: ACETAMINOPHEN 1000 MG/100 ML BAG IVPB ONE (17:28)
[2021-08-07] MEDS ORDERED: ACETAMINOPHEN INJECTION 100 ML IVPB ONE (17:30)
[2021-08-07] MEDS ORDERED: KETAMINE HCL 500 MG/10 ML VIAL IVPB ONE (17:51)
[2021-08-07] MEDS ORDERED: SODIUM CHLORIDE 0.9% 500 ML INFUS.BAG IV ONE (17:52)
[2021-08-07] MEDS ORDERED: LIDOCAINE 5% TOPICAL PATCH TP ONE (17:53)
[2021-08-07] MEDS ORDERED: LIDOCAINE 5% TOPICAL PATCH ONE (18:00)
[2021-08-07] MEDS ORDERED: KETAMINE HCL 200 MG/20 ML VIAL ONE (18:00)
[2021-08-07 19:42] VITALS: BP 141/86; PULSE 92
[2021-08-07] MEDS ORDERED: LIDOCAINE PATCH REMOVAL MC SCH (22:00)
== END 2021-08-07 19:46 | disposition home or self-care (01) ==
LOC: JER 16:31
PROC: 3E0333Z Introduction of Anti-inflammatory into Peripheral Vein, Percutaneous Approach (ICD-10-PCS; principal; 2021-08-07)
PROC: 3E033GC Introduction of Other Therapeutic Substance into Peripheral Vein, Percutaneous Approach (ICD-10-PCS; 2021-08-07)
DX: M25.552 Pain in left hip (principal); R03.0 Elevated blood-pressure reading, without diagnosis of hypertension
CPT/HCPCS: 93005; 93010; 99285-25; J0131

== ENCOUNTER 2021-09-22 04:18 | Day surgery (SDC) | payer OTHER ==
[2021-09-21 15:20] VITALS: BMI 25.8
[2021-09-22] MEDS ORDERED: PROPOFOL 20 ML ONE ×3 (10:16)
[2021-09-22] MEDS ORDERED: MIDAZOLAM HCL 2 MG/2 ML SINGLE DOSE VIAL ONE (10:23)
[2021-09-22] MEDS ORDERED: ceFAZolin SODIUM 1 GM VIAL IVPB ONE (10:53)
[2021-09-22 15:03] VITALS: TEMP 97.4
[2021-09-22 16:18] VITALS: BP 110/66; PULSE 88
== END 2021-09-22 15:45 | disposition home or self-care (01) ==
LOC: JASU-SURG 04:18
PROVIDERS: ATTEND Orthopaedic Surgery
PROC: 0SW Lower Joints, Revision (ICD-10-PCS; principal; 2021-09-22 09:00)
DX: T84.84XA Pain due to internal orthopedic prosthetic devices, implants and grafts, initial encounter (principal); Y79.8 Miscellaneous orthopedic devices associated with adverse incidents, not elsewhere classified; M25.552 Pain in left hip
CPT/HCPCS: 76000-TC-FY; 82962; 94760

== ENCOUNTER 2021-12-17 11:05 | Inpatient (IN) | payer OTHER ==
[2021-12-17 11:36] VITALS: BMI 28.2
[2021-12-17] MEDS ORDERED: SODIUM CHLORIDE 1,000 ML IV ONE (11:51)
[2021-12-17 12:46] LABS: HEMATOCRIT 40.1 % (32.4-45.2); HEMOGLOBIN 13.3 GM/dL (10.7-15.3); MCHC 33.1 g/dl (32.0-36.0); MEAN CELL VOLUME 87.7 fl (80-96); MEAN PLT VOLUME 9.9 fl (7.5-11.1); PLATELET COUNT 244 10^3/uL (134-434); RBC 4.57 M/mm3 (3.60-5.2); RDW 14.8 % (11.6-15.6); WHITE BLOOD COUNT 8.1 K/mm3 (4.0-10.0)
[2021-12-17 13:07] LABS: CHLORIDE 107 mmol/L (98-107); SODIUM 142 mmol/L (136-145)
[2021-12-17 13:11] LABS: ALBUMIN 3.5 g/dl (3.4-5.0); ANION GAP 6 MMOL/L (8-16); BLOOD UREA NITROGEN 10.7 mg/dL (7-18); CALCIUM 9.6 mg/dL (8.5-10.1); CO2 29 mmol/L (21-32); GLUCOSE,RANDOM 173 mg/dL (74-106)
[2021-12-17 13:13] LABS: CREATININE 0.6 mg/dL (0.55-1.3); SGOT/AST 23 U/L (15-37)
[2021-12-17 13:17] LABS: ALK PHOS 100 U/L (45-117); BILIRUBIN,TOTAL 0.4 mg/dL (0.2-1)
[2021-12-17 13:22] LABS: SGPT/ALT 29 U/L (13-61)
[2021-12-17] MEDS ORDERED: ASPIRIN 81 MG CHEWABLE TABLETS PO ONE (14:04)
[2021-12-17] MEDS ORDERED: ASPIRIN 81 MG CHEWABLE TABLETS ONE (14:08)
[2021-12-17] MEDS ORDERED: ACETAMINOPHEN 325 MG TABLET (FP) PO ONE (22:13)
[2021-12-18] MEDS: metFORMIN HCL 500 MG TABLET (FP) PO SCH ×2 (06:37→16:29)
[2021-12-18] MEDS: INSULIN SLIDING SCALE (NOVOLOG) 1 VIAL SQ SCH ×4 (06:37→21:17)
[2021-12-18 06:42] LABS: BASO % 0.8 % (0-2.0); EOS % 2.8 % (0-4.5); HEMATOCRIT 41.1 % (32.4-45.2); HEMOGLOBIN 13.9 GM/dL (10.7-15.3); LYMPH % 40.9 % (8-40); MCH 29.3 pg (25.7-33.7); MCHC 33.9 g/dl (32.0-36.0); MEAN CELL VOLUME 86.5 fl (80-96); MONO % 6.5 % (3.8-10.2); PLATELET COUNT 255 10^3/uL (134-434); RBC 4.75 M/mm3 (3.60-5.2); RDW 14.7 % (11.6-15.6); WHITE BLOOD COUNT 6.1 K/mm3 (4.0-10.0)
[2021-12-18 06:57] LABS: URINE APPEARANCE CLEAR; URINE BILIRUBIN NEGATIVE (NEGATIVE); URINE COLOR YELLOW; URINE GLUCOSE (UA) 1+ (NEGATIVE); URINE KETONE NEGATIVE (NEGATIVE); URINE LEUK ESTERASE NEGATIVE (NEGATIVE); URINE NITRITE NEGATIVE (NEGATIVE); URINE PROTEIN NEGATIVE (NEGATIVE)
[2021-12-18 07:14] LABS: CALCIUM 9.1 mg/dL (8.5-10.1)
[2021-12-18 07:15] LABS: ALBUMIN 3.5 g/dl (3.4-5.0)
[2021-12-18 07:18] LABS: CREATININE 0.5 mg/dL (0.55-1.3)
[2021-12-18 07:19] LABS: BILIRUBIN,TOTAL 0.4 mg/dL (0.2-1)
[2021-12-18 07:32] LABS: BLOOD UREA NITROGEN 7.3 mg/dL (7-18)
[2021-12-18] MEDS: FUROSEMIDE 40 MG TABLET (FP) PO SCH (10:16)
[2021-12-18] MEDS: ASPIRIN COATED 81 MG TABLET.EC PO SCH (10:16)
[2021-12-18] MEDS: LOSARTAN POTASSIUM 25 MG TABLET PO SCH (10:17)
[2021-12-18] MEDS: amLODIPine BESYLATE 5 MG TABLET (FP) PO SCH (10:17)
[2021-12-18] MEDS: POLYETHYLENE GLYCOL (HEALTHYLAX) 3350 17 GM PACKET PO SCH (10:17)
[2021-12-18] MEDS: HEPARIN NA (PORCINE) 5,000 UNITS/ML 1ML VIAL SQ SCH ×2 (10:17→21:18)
[2021-12-18] MEDS: NICOTINE 14 MG/24 HOURS TOPICAL PATCH TD SCH (14:49)
[2021-12-18] MEDS: ATORVASTATIN CA 40 MG TABLET (FP) PO SCH (21:17)
[2021-12-19] MEDS: INSULIN SLIDING SCALE (NOVOLOG) 1 VIAL SQ SCH ×4 (06:24→22:04)
[2021-12-19] MEDS: metFORMIN HCL 500 MG TABLET (FP) PO SCH ×2 (06:24→17:50)
[2021-12-19] MEDS ORDERED: ACETAMINOPHEN 1000 MG/100 ML BAG IVPB STA (09:10)
[2021-12-19] MEDS: POLYETHYLENE GLYCOL (HEALTHYLAX) 3350 17 GM PACKET PO SCH (09:20)
[2021-12-19] MEDS: HEPARIN NA (PORCINE) 5,000 UNITS/ML 1ML VIAL SQ SCH ×2 (09:21→21:21)
[2021-12-19] MEDS: amLODIPine BESYLATE 5 MG TABLET (FP) PO SCH (09:21)
[2021-12-19] MEDS: FUROSEMIDE 40 MG TABLET (FP) PO SCH (09:21)
[2021-12-19] MEDS: LOSARTAN POTASSIUM 25 MG TABLET PO SCH (09:21)
[2021-12-19] MEDS: ASPIRIN COATED 81 MG TABLET.EC PO SCH (09:21)
[2021-12-19] MEDS: NICOTINE 14 MG/24 HOURS TOPICAL PATCH TD SCH (09:21)
[2021-12-19] MEDS ORDERED: ACETAMINOPHEN 325 MG TABLET (FP) PO PRN (13:30)
[2021-12-19] MEDS: PANTOPRAZOLE 40 MG TABLET PO SCH (15:02)
[2021-12-19] MEDS: ATORVASTATIN CA 40 MG TABLET (FP) PO SCH (21:21)
[2021-12-20] MEDS: metFORMIN HCL 500 MG TABLET (FP) PO SCH ×2 (06:33→17:32)
[2021-12-20] MEDS: INSULIN SLIDING SCALE (NOVOLOG) 1 VIAL SQ SCH ×4 (06:34→21:40)
[2021-12-20 07:22] LABS: BASO % 1.4 % (0-2.0); EOS % 1.7 % (0-4.5); HEMATOCRIT 42.3 % (32.4-45.2); HEMOGLOBIN 14.1 GM/dL (10.7-15.3); LYMPH % 52.5 % (8-40); MCH 29.3 pg (25.7-33.7); MCHC 33.5 g/dl (32.0-36.0); MEAN CELL VOLUME 87.4 fl (80-96); MEAN PLT VOLUME 9.5 fl (7.5-11.1); MONO % 4.3 % (3.8-10.2); NEUT % 40.1 % (42.8-82.8); PLATELET COUNT 245 10^3/uL (134-434); RBC 4.83 M/mm3 (3.60-5.2); RDW 14.6 % (11.6-15.6); WHITE BLOOD COUNT 6.1 K/mm3 (4.0-10.0)
[2021-12-20 07:43] LABS: CALCIUM 9.1 mg/dL (8.5-10.1)
[2021-12-20 07:44] LABS: ALBUMIN 3.3 g/dl (3.4-5.0); BLOOD UREA NITROGEN 16.1 mg/dL (7-18)
[2021-12-20 07:47] LABS: CREATININE 0.6 mg/dL (0.55-1.3)
[2021-12-20 07:48] LABS: BILIRUBIN,TOTAL 0.4 mg/dL (0.2-1); TOT PROT 6.8 g/dl (6.4-8.2)
[2021-12-20] MEDS ORDERED: REGADENOSON 0.4 MG/5 ML PRE-FILLED SYRINGE IVPUSH ONE ×2 (10:30→10:45)
[2021-12-20] MEDS: amLODIPine BESYLATE 5 MG TABLET (FP) PO SCH (12:35)
[2021-12-20] MEDS: ASPIRIN COATED 81 MG TABLET.EC PO SCH (12:35)
[2021-12-20] MEDS: HEPARIN NA (PORCINE) 5,000 UNITS/ML 1ML VIAL SQ SCH ×2 (12:35→21:29)
[2021-12-20] MEDS: FUROSEMIDE 40 MG TABLET (FP) PO SCH (12:35)
[2021-12-20] MEDS: LOSARTAN POTASSIUM 25 MG TABLET PO SCH (12:35)
[2021-12-20] MEDS: POLYETHYLENE GLYCOL (HEALTHYLAX) 3350 17 GM PACKET PO SCH (12:36)
[2021-12-20] MEDS: PANTOPRAZOLE 40 MG TABLET PO SCH (12:36)
[2021-12-20] MEDS: NICOTINE 14 MG/24 HOURS TOPICAL PATCH TD SCH (12:48)
[2021-12-20] MEDS: ATORVASTATIN CA 40 MG TABLET (FP) PO SCH (21:29)
[2021-12-21 06:02] VITALS: TEMP 97.9
[2021-12-21] MEDS: metFORMIN HCL 500 MG TABLET (FP) PO SCH (06:15)
[2021-12-21] MEDS: INSULIN SLIDING SCALE (NOVOLOG) 1 VIAL SQ SCH ×2 (06:43→11:25)
[2021-12-21 08:14] VITALS: BP 128/64; PULSE 78
[2021-12-21] MEDS: ASPIRIN COATED 81 MG TABLET.EC PO SCH (09:54)
[2021-12-21] MEDS: FUROSEMIDE 40 MG TABLET (FP) PO SCH (09:54)
[2021-12-21] MEDS: NICOTINE 14 MG/24 HOURS TOPICAL PATCH TD SCH (09:54)
[2021-12-21] MEDS: HEPARIN NA (PORCINE) 5,000 UNITS/ML 1ML VIAL SQ SCH (09:54)
[2021-12-21] MEDS: POLYETHYLENE GLYCOL (HEALTHYLAX) 3350 17 GM PACKET PO SCH (09:54)
[2021-12-21] MEDS: PANTOPRAZOLE 40 MG TABLET PO SCH (09:55)
[2021-12-21] MEDS: amLODIPine BESYLATE 5 MG TABLET (FP) PO SCH (09:55)
[2021-12-21] MEDS: LOSARTAN POTASSIUM 25 MG TABLET PO SCH (09:56)
== END 2021-12-21 12:15 | disposition home or self-care (01) | DRG 312 ==
LOC: JER 11:05 → JERBED 13:18 → J2W 18:19 → OBSVTOIN 22:30
PROVIDERS: ADMIT Internal Medicine; ATTEND Internal Medicine
DX: R55 Syncope and collapse (principal); I10 Essential (primary) hypertension; E11.9 Type 2 diabetes mellitus without complications; Z79.4 Long term (current) use of insulin; E78.5 Hyperlipidemia, unspecified; R79.89 Other specified abnormal findings of blood chemistry; R42 Dizziness and giddiness
CPT/HCPCS: 0241U-QW; 36415; 70450-TC; 71045-TC-FY; 78452-TC; 80053; 81003; 82962; 84484; 85025; 85027; 93005; 93010; 93017; 93306-TC; 93880-TC; 97116-GP; 97161-GP; 99285-25; A9502; G0378; J1644; J2785

== ENCOUNTER → 2022-02-08 | Day surgery (SDC) | payer OTHER ==
[2022-02-07 13:04] VITALS: BMI 26.3
[~2022-02-08] MED LIST: BUPIVACAINE HCL/PF 0.75% 10 ML VIAL ONE; LIDOCAINE HCL/PF 1% SDV 5ML VIAL ONE
[2022-02-08 09:43] VITALS: BP 130/68; PULSE 78; RESP 18; TEMP 97.7
== END | disposition home or self-care (01) ==
LOC: JASU-SURG 04:31
PROVIDERS: ATTEND Pain Medicine Pain Medicine
DX: Z53.8 Procedure and treatment not carried out for other reasons (principal)
CPT/HCPCS: C9803-CS; U0003; U0005

== ENCOUNTER 2022-03-08 04:42 | Day surgery (SDC) | payer OTHER ==
[2022-03-03 11:30] VITALS: BMI 26.3
[2022-03-08] MEDS ORDERED: BUPIVACAINE HCL/PF 0.75% 10 ML VIAL ONE (07:12)
[2022-03-08] MEDS ORDERED: LIDOCAINE HCL/PF 1% SDV 5ML VIAL ONE (07:12)
[2022-03-08 07:17] VITALS: RESP 16
[2022-03-08] MEDS ORDERED: BUPIVACAINE HCL/PF 0.75% 10 ML VIAL NR ONE (10:10)
[2022-03-08] MEDS ORDERED: LIDOCAINE 1% P/F 10 MG/ML VIAL INF ONE (10:11)
[2022-03-08 10:33] VITALS: BP 153/94; PULSE 69; TEMP 98
== END 2022-03-08 10:55 | disposition home or self-care (01) ==
LOC: JASU-SURG 04:42
PROVIDERS: ATTEND Pain Medicine Pain Medicine
PROC: BR16YZZ Fluoroscopy of Lumbar Facet Joint(s) using Other Contrast (ICD-10-PCS; 2022-03-08)
PROC: 3E0T3BZ Introduction of Anesthetic Agent into Peripheral Nerves and Plexi, Percutaneous Approach (ICD-10-PCS; principal; 2022-03-08 09:30)
DX: M47.816 Spondylosis without myelopathy or radiculopathy, lumbar region (principal); I10 Essential (primary) hypertension; E11.9 Type 2 diabetes mellitus without complications; Z79.84 Long term (current) use of oral hypoglycemic drugs
CPT/HCPCS: 76000-TC-FY

== ENCOUNTER 2022-04-01 05:03 | Day surgery (SDC) | payer OTHER ==
[2022-03-30 15:11] VITALS: BMI 26.3
[2022-04-01 08:59] VITALS: RESP 18
[2022-04-01] MEDS ORDERED: LIDOCAINE HCL 1% PRESERVATIVE FREE - 30ML VIAL IJ ONE (11:43)
[2022-04-01] MEDS ORDERED: BUPIVACAINE HCL/PF 0.75% 10 ML VIAL PNB ONE (11:43)
[2022-04-01 12:35] VITALS: PULSE 70; TEMP 98.1
[2022-04-01 12:55] VITALS: BP 130/70
== END 2022-04-01 12:30 | disposition home or self-care (01) ==
LOC: JASU-SURG 05:03
PROVIDERS: ATTEND Pain Medicine Pain Medicine
PROC: BR16YZZ Fluoroscopy of Lumbar Facet Joint(s) using Other Contrast (ICD-10-PCS; 2022-04-01)
PROC: 3E0T3BZ Introduction of Anesthetic Agent into Peripheral Nerves and Plexi, Percutaneous Approach (ICD-10-PCS; principal; 2022-04-01 10:45)
DX: M47.816 Spondylosis without myelopathy or radiculopathy, lumbar region (principal); I10 Essential (primary) hypertension; E11.9 Type 2 diabetes mellitus without complications
CPT/HCPCS: 76000-TC-FY

== ENCOUNTER 2022-04-29 04:08 | Day surgery (SDC) | payer OTHER ==
[2022-04-27 15:43] VITALS: BMI 28.8
[2022-04-29] MEDS ORDERED: LIDOCAINE HCL/PF 2% SDV 5ML VIAL ONE (07:30)
[2022-04-29 07:42] VITALS: RESP 18
[2022-04-29] MEDS ORDERED: BUPIVACAINE HCL/PF 0.75% 10 ML VIAL NR ONE (09:13)
[2022-04-29] MEDS ORDERED: LIDOCAINE HCL 1%, 10 MG/ML (50 mL VIAL) NR ONE (09:14)
[2022-04-29] MEDS ORDERED: DEXAMETHASONE SOD PHOSPHATE 10 MG/1 ML VIAL IVPUSH ONE (09:14)
[2022-04-29] MEDS ORDERED: LIDOCAINE HCL 2% (50ML VIAL) INF ONE (09:15)
[2022-04-29 10:06] VITALS: TEMP 97.6
[2022-04-29 10:28] VITALS: BP 140/60; PULSE 74
== END 2022-04-29 10:15 | disposition home or self-care (01) ==
LOC: JASU-SURG 04:08
PROVIDERS: ATTEND Pain Medicine Pain Medicine
PROC: 3E0T3TZ Introduction of Destructive Agent into Peripheral Nerves and Plexi, Percutaneous Approach (ICD-10-PCS; principal; 2022-04-29 09:15)
PROC: BR16YZZ Fluoroscopy of Lumbar Facet Joint(s) using Other Contrast (ICD-10-PCS; 2022-04-29 09:15)
DX: M47.816 Spondylosis without myelopathy or radiculopathy, lumbar region (principal); I10 Essential (primary) hypertension
CPT/HCPCS: 76000-TC-FY; J1100

== ENCOUNTER 2022-08-16 04:27 | Day surgery (SDC) | payer OTHER ==
[2022-08-12 11:13] VITALS: BMI 27.8
[~2022-08-16 04:27] MED LIST changes: -BUPIVACAINE HCL/PF 0.75% 10 ML VIAL ONE; +DEXAMETHASONE SOD PHOSPHATE 10 MG/1 ML VIAL IM ONE; +IOHEXOL 180 MG/1 ML ML IJ ONE; +LIDOCAINE HCL 1% PRESERVATIVE FREE - 30ML VIAL IJ ONE; -LIDOCAINE HCL/PF 1% SDV 5ML VIAL ONE
[2022-08-16] MEDS ORDERED: DEXAMETHASONE SOD PHOSPHATE 10 MG/1 ML VIAL ONE (07:20)
[2022-08-16] MEDS ORDERED: LIDOCAINE HCL/PF 1% SDV 5ML VIAL ONE (07:20)
[2022-08-16] MEDS ORDERED: IOHEXOL 180 MG/1 ML ML IJ ONE (09:39)
[2022-08-16] MEDS ORDERED: LIDOCAINE HCL 1% PRESERVATIVE FREE - 30ML VIAL IJ ONE ×2 (09:39)
[2022-08-16] MEDS ORDERED: DEXAMETHASONE SOD PHOSPHATE 10 MG/1 ML VIAL IM ONE (09:43)
[2022-08-16 10:08] VITALS: RESP 18
[2022-08-16 10:42] VITALS: BP 132/63; PULSE 86; TEMP 97.5
== END 2022-08-16 10:30 | disposition home or self-care (01) ==
LOC: JASU-SURG 04:27
PROVIDERS: ATTEND Pain Medicine Pain Medicine
PROC: 3E0R3BZ Introduction of Anesthetic Agent into Spinal Canal, Percutaneous Approach (ICD-10-PCS; 2022-08-16)
PROC: 3E0R33Z Introduction of Anti-inflammatory into Spinal Canal, Percutaneous Approach (ICD-10-PCS; principal; 2022-08-16 09:00)
DX: M48.061 Spinal stenosis, lumbar region without neurogenic claudication (principal); M54.16 Radiculopathy, lumbar region
CPT/HCPCS: 76000-TC-FY; J1100

== ENCOUNTER → 2022-09-16 | Day surgery (SDC) | payer OTHER ==
[2022-09-12 15:01] VITALS: BMI 27.8
[~2022-09-16] MED LIST changes: -DEXAMETHASONE SOD PHOSPHATE 10 MG/1 ML VIAL IM ONE; -IOHEXOL 180 MG/1 ML ML IJ ONE; +LIDOCAINE 1% P/F 10 MG/ML VIAL PNB ONE; -LIDOCAINE HCL 1% PRESERVATIVE FREE - 30ML VIAL IJ ONE
[2022-09-16 07:48] VITALS: RESP 18
[2022-09-16 10:44] VITALS: BP 130/55; PULSE 79; TEMP 97.9
== END | disposition home or self-care (01) ==
LOC: JASU-SURG 04:10
PROVIDERS: ATTEND Pain Medicine Pain Medicine
PROC: 01HY3MZ Insertion of Neurostimulator Lead into Peripheral Nerve, Percutaneous Approach (ICD-10-PCS; principal; 2022-09-16 10:15)
DX: G89.4 Chronic pain syndrome (principal); G58.9 Mononeuropathy, unspecified
CPT/HCPCS: 64555; C1778; 76000-TC-FY

== ENCOUNTER 2022-10-14 05:30 | Day surgery (SDC) | payer OTHER ==
[2022-10-07 15:11] VITALS: BMI 27.8
[2022-10-14] MEDS ORDERED: LIDOCAINE HCL 1% PRESERVATIVE FREE - 30ML VIAL IJ ONE (10:56)
[2022-10-14 11:45] VITALS: BP 137/67; PULSE 72; RESP 16; TEMP 98
== END 2022-10-14 11:47 | disposition home or self-care (01) ==
LOC: JASU-SURG 05:30
PROVIDERS: ATTEND Pain Medicine Pain Medicine
PROC: 01HY3MZ Insertion of Neurostimulator Lead into Peripheral Nerve, Percutaneous Approach (ICD-10-PCS; principal; 2022-10-14 11:00)
DX: G89.4 Chronic pain syndrome (principal); M54.50 Low back pain, unspecified
CPT/HCPCS: 64555; C1778; 76000-TC-FY

== ENCOUNTER 2022-11-22 03:43 | Day surgery (SDC) | payer OTHER ==
[2022-11-18 11:44] VITALS: BMI 27.6
[~2022-11-22 03:43] MED LIST changes: -LIDOCAINE 1% P/F 10 MG/ML VIAL PNB ONE; +LIDOCAINE HCL 1% PRESERVATIVE FREE - 30ML VIAL IJ ONE
[2022-11-22] MEDS ORDERED: LIDOCAINE HCL 1% PRESERVATIVE FREE - 30ML VIAL IJ ONE ×2 (09:39)
[2022-11-22 10:13] VITALS: RESP 18
[2022-11-22 10:37] VITALS: BP 138/61; PULSE 69; TEMP 98
[2022-11-22] MEDS ORDERED: ACETAMINOPHEN 500 MG TABLET (FP) PO PRN (12:38)
== END 2022-11-22 10:25 | disposition home or self-care (01) ==
LOC: JASU-SURG 03:43
PROVIDERS: ATTEND Pain Medicine Pain Medicine
PROC: 01HY3MZ Insertion of Neurostimulator Lead into Peripheral Nerve, Percutaneous Approach (ICD-10-PCS; principal; 2022-11-22 09:30)
DX: G89.4 Chronic pain syndrome (principal); M54.50 Low back pain, unspecified
CPT/HCPCS: 64555; C1778; 76000-TC-FY

== ENCOUNTER 2023-01-06 19:47 | Inpatient (IN) | payer OTHER ==
[2023-01-06 20:02] VITALS: BMI 26.6
[2023-01-06] MEDS ORDERED: ACETAMINOPHEN 1000 MG/100 ML BAG IVPB ONE (20:42)
[2023-01-06] MEDS ORDERED: ACETAMINOPHEN INJECTION 100 ML IVPB ONE (20:46)
[2023-01-06 21:21] LABS: BASO % 0.7 % (0-2.0); EOS % 1.2 % (0-4.5); HEMATOCRIT 41.7 % (32.4-45.2); HEMOGLOBIN 13.8 GM/dL (10.7-15.3); LYMPH % 33.4 % (8-40); MCHC 33.1 g/dl (32.0-36.0); MEAN CELL VOLUME 84.6 fl (80-96); MEAN PLT VOLUME 8.9 fl (7.5-11.1); MONO % 8.3 % (3.8-10.2); NEUT % 56.4 % (42.8-82.8); PLATELET COUNT 284 10^3/uL (134-434); RBC 4.93 M/mm3 (3.60-5.2); RDW 16.4 % (11.6-15.6); WHITE BLOOD COUNT 9.1 K/mm3 (4.0-10.0)
[2023-01-06 21:25] LABS: INR 1.03 (0.83-1.09)
[2023-01-06 21:27] LABS: ACTIVATED PTT 30.7 SECONDS (25.2-36.5)
[2023-01-06] MEDS ORDERED: SODIUM CHLORIDE 0.9% 500 ML INFUS.BAG IV ONE (21:29)
[2023-01-06 21:36] LABS: PH,URINE 7.5 (5.0-8.0); URINE APPEARANCE CLEAR; URINE BILIRUBIN NEGATIVE (NEGATIVE); URINE COLOR YELLOW; URINE GLUCOSE (UA) NEGATIVE (NEGATIVE); URINE KETONE NEGATIVE (NEGATIVE); URINE LEUK ESTERASE NEGATIVE (NEGATIVE); URINE NITRITE NEGATIVE (NEGATIVE); URINE PROTEIN NEGATIVE (NEGATIVE); URINE UROBILINOGEN 0.2 mg/dL (0.2-1.0)
[2023-01-06 21:41] LABS: CHLORIDE 108 mmol/L (98-107); POTASSIUM 4.7 mmol/L (3.5-5.1); SODIUM 144 mmol/L (136-145)
[2023-01-06 21:43] LABS: CALCIUM 9.5 mg/dL (8.5-10.1)
[2023-01-06 21:44] LABS: ALBUMIN 3.2 g/dl (3.4-5.0); ANION GAP 7 MMOL/L (8-16); BLOOD UREA NITROGEN 12.2 mg/dL (7-18); CO2 28 mmol/L (21-32); LIPASE 46 U/L (73-393)
[2023-01-06 21:46] LABS: CREATININE 0.7 mg/dL (0.55-1.3)
[2023-01-06 21:47] LABS: SGOT/AST 49 U/L (15-37); SGPT/ALT 38 U/L (13-61)
[2023-01-06 21:48] LABS: BILIRUBIN,TOTAL 0.4 mg/dL (0.2-1); TOT PROT 7.4 g/dl (6.4-8.2)
[2023-01-06 21:50] LABS: ALK PHOS 110 U/L (45-117)
[2023-01-06 21:54] LABS: GLUCOSE,RANDOM 43 mg/dL (74-106)
[2023-01-07] MEDS ORDERED: ACETAMINOPHEN 1000 MG/100 ML BAG IVPB PRN (01:10)
[2023-01-07] MEDS: INSULIN SLIDING SCALE (NOVOLOG) 1 VIAL SQ SCH ×2 (06:03→11:04)
[2023-01-07 09:45] VITALS: BP 155/86; PULSE 72; RESP 18; TEMP 98.5
[2023-01-07] MEDS ORDERED: ENOXAPARIN NA (PORCINE) 40 MG/0.4 ML DISP.SYRIN SQ SCH (10:00)
[2023-01-07] MEDS ORDERED: ASPIRIN COATED 81 MG TABLET.EC PO SCH (10:00)
[2023-01-07] MEDS ORDERED: amLODIPine BESYLATE 5 MG TABLET (FP) PO SCH (10:00)
[2023-01-07] MEDS ORDERED: INSULIN (NOVOLOG) ASPART 100 UNITS/ML 10ML VIAL ONE (11:01)
[2023-01-07] MEDS ORDERED: FUROSEMIDE 40 MG TABLET (FP) PO SCH (22:00)
[2023-01-07] MEDS ORDERED: LOSARTAN POTASSIUM 25 MG TABLET PO SCH (22:00)
[2023-01-07] MEDS ORDERED: ATORVASTATIN CA 40 MG TABLET (FP) PO SCH (22:00)
== END 2023-01-07 13:06 | disposition left against medical advice (07) | DRG 638 ==
LOC: JER 19:47 → JERBED 22:14 → OBSVTOIN 01-07 01:06 → J4W 01-07 01:53
PROVIDERS: ADMIT Internal Medicine; ATTEND Internal Medicine
DX: E11.649 Type 2 diabetes mellitus with hypoglycemia without coma (principal); I50.30 Unspecified diastolic (congestive) heart failure; I10 Essential (primary) hypertension; I25.10 Atherosclerotic heart disease of native coronary artery without angina pectoris; E78.00 Pure hypercholesterolemia, unspecified; E78.5 Hyperlipidemia, unspecified; G89.29 Other chronic pain; R07.89 Other chest pain; F17.210 Nicotine dependence, cigarettes, uncomplicated; E11.42 Type 2 diabetes mellitus with diabetic polyneuropathy
CPT/HCPCS: 0241U-QW; 36415; 71045-TC-FY; 80053; 81003; 82962; 83690; 84484; 85025; 85610; 85730; 87086; 87186; 93005; 93010; 99285-25; G0378

== ENCOUNTER 2023-02-24 13:32 | Inpatient (IN) | payer OTHER ==
[2023-02-24 15:03] LABS: BASO % 0.7 % (0-2.0); EOS % 1.5 % (0-4.5); HEMATOCRIT 40.4 % (32.4-45.2); HEMOGLOBIN 13.3 GM/dL (10.7-15.3); MCH 28.5 pg (25.7-33.7); MEAN CELL VOLUME 86.3 fl (80-96); MEAN PLT VOLUME 10.1 fl (7.5-11.1); MONO % 5.5 % (3.8-10.2); NEUT % 55.3 % (42.8-82.8); PLATELET COUNT 250 10^3/uL (134-434); RBC 4.68 M/mm3 (3.60-5.2); RDW 15.1 % (11.6-15.6); WHITE BLOOD COUNT 7.7 K/mm3 (4.0-10.0)
[2023-02-24 15:16] LABS: PH,URINE 6.5 (5.0-8.0); URINE APPEARANCE CLEAR; URINE BILIRUBIN NEGATIVE (NEGATIVE); URINE COLOR YELLOW; URINE GLUCOSE (UA) 1+ (NEGATIVE); URINE KETONE NEGATIVE (NEGATIVE); URINE LEUK ESTERASE NEGATIVE (NEGATIVE); URINE NITRITE NEGATIVE (NEGATIVE); URINE PROTEIN NEGATIVE (NEGATIVE); URINE UROBILINOGEN 0.2 mg/dL (0.2-1.0)
[2023-02-24 15:37] LABS: ALBUMIN 3.4 g/dl (3.4-5.0); BLOOD UREA NITROGEN 10.1 mg/dL (7-18); CALCIUM 9.3 mg/dL (8.5-10.1); MAGNESIUM 1.4 mg/dL (1.8-2.4)
[2023-02-24 15:40] LABS: CREATININE 0.6 mg/dL (0.55-1.3)
[2023-02-24 15:42] LABS: BILIRUBIN,TOTAL 0.4 mg/dL (0.2-1); TOT PROT 6.9 g/dl (6.4-8.2)
[2023-02-24] MEDS ORDERED: ASPIRIN 325 MG TABLET PO ONE (15:44)
[2023-02-24] MEDS ORDERED: ASPIRIN 325 MG TABLET ONE (16:08)
[2023-02-24 22:34] VITALS: BMI 24.6
[2023-02-25] MEDS: metFORMIN HCL 500 MG TABLET (FP) PO SCH ×2 (06:06→17:07)
[2023-02-25] MEDS: sitaGLIPtin PHOSPHATE 50 MG TABLET PO SCH (06:07)
[2023-02-25] MEDS: INSULIN SLIDING SCALE (NOVOLOG) 1 VIAL SQ SCH ×5 (06:07→22:12)
[2023-02-25] MEDS: ASPIRIN COATED 81 MG TABLET.EC PO SCH (09:02)
[2023-02-25] MEDS: ENOXAPARIN NA (PORCINE) 40 MG/0.4 ML DISP.SYRIN SQ SCH (09:02)
[2023-02-25] MEDS: FUROSEMIDE 40 MG TABLET (FP) PO SCH (09:02)
[2023-02-25] MEDS: PANTOPRAZOLE 40 MG TABLET PO SCH (09:02)
[2023-02-25] MEDS ORDERED: INSULIN SLIDING SCALE (NOVOLOG) 1 VIAL SQ ONE ×2 (17:18→17:20)
[2023-02-25] MEDS ORDERED: LOSARTAN POTASSIUM 25 MG TABLET PO SCH (22:00)
[2023-02-25] MEDS ORDERED: amLODIPine BESYLATE 5 MG TABLET (FP) PO SCH (22:00)
[2023-02-25] MEDS ORDERED: MELATONIN 5 MG TABLETS PO SCH (22:00)
[2023-02-25] MEDS ORDERED: ATORVASTATIN CA 40 MG TABLET (FP) PO SCH (22:00)
[2023-02-26] MEDS: sitaGLIPtin PHOSPHATE 50 MG TABLET PO SCH (06:58)
[2023-02-26] MEDS: INSULIN SLIDING SCALE (NOVOLOG) 1 VIAL SQ SCH ×2 (06:58→11:23)
[2023-02-26] MEDS: metFORMIN HCL 500 MG TABLET (FP) PO SCH (06:58)
[2023-02-26 07:07] LABS: BASO % 0.7 % (0-2.0); EOS % 1.3 % (0-4.5); HEMATOCRIT 43.2 % (32.4-45.2); HEMOGLOBIN 14.3 GM/dL (10.7-15.3); LYMPH % 36.9 % (8-40); MCH 28.4 pg (25.7-33.7); MCHC 33.1 g/dl (32.0-36.0); MEAN CELL VOLUME 85.9 fl (80-96); MEAN PLT VOLUME 10.4 fl (7.5-11.1); MONO % 7.5 % (3.8-10.2); NEUT % 53.6 % (42.8-82.8); PLATELET COUNT 248 10^3/uL (134-434); RBC 5.03 M/mm3 (3.60-5.2); RDW 14.9 % (11.6-15.6)
[2023-02-26 07:24] LABS: POTASSIUM 3.5 mmol/L (3.5-5.1)
[2023-02-26 07:27] LABS: ALBUMIN 3.4 g/dl (3.4-5.0); BLOOD UREA NITROGEN 12.9 mg/dL (7-18); CALCIUM 8.8 mg/dL (8.5-10.1)
[2023-02-26 07:30] LABS: CREATININE 0.6 mg/dL (0.55-1.3)
[2023-02-26 07:32] LABS: BILIRUBIN,TOTAL 0.9 mg/dL (0.2-1); TOT PROT 6.9 g/dl (6.4-8.2)
[2023-02-26 08:40] VITALS: BP 120/67; PULSE 78; RESP 18; TEMP 98.7
[2023-02-26] MEDS: ENOXAPARIN NA (PORCINE) 40 MG/0.4 ML DISP.SYRIN SQ SCH (09:01)
[2023-02-26] MEDS: PANTOPRAZOLE 40 MG TABLET PO SCH (09:02)
[2023-02-26] MEDS: FUROSEMIDE 40 MG TABLET (FP) PO SCH (09:02)
[2023-02-26] MEDS: ASPIRIN COATED 81 MG TABLET.EC PO SCH (09:02)
== END 2023-02-26 15:09 | disposition home or self-care (01) | DRG 149 ==
LOC: JER 13:32 → JERBED 15:54 → J4S 22:07
PROVIDERS: ADMIT Internal Medicine; ATTEND Internal Medicine
DX: H81.10 Benign paroxysmal vertigo, unspecified ear (principal); E11.9 Type 2 diabetes mellitus without complications; I11.9 Hypertensive heart disease without heart failure; I25.10 Atherosclerotic heart disease of native coronary artery without angina pectoris; E78.5 Hyperlipidemia, unspecified; E78.00 Pure hypercholesterolemia, unspecified
CPT/HCPCS: 0241U-QW; 36415; 70450-TC; 70551-TC; 71045-TC-FY; 73552-TC-LT-FY; 80053; 81003; 82962; 83036; 83735; 84443; 84484; 85025; 87086; 93005; 93010; 93880-TC; 99285-25

== ENCOUNTER 2023-02-28 10:20 | Observation (INO) | payer OTHER ==
[2023-02-28] MEDS ORDERED: SODIUM CHLORIDE 0.9% 500 ML INFUS.BAG IV ONE ×2 (11:43→14:06)
[2023-02-28 12:25] LABS: BASO % 0.5 % (0-2.0); EOS % 0.6 % (0-4.5); HEMATOCRIT 41.9 % (32.4-45.2); HEMOGLOBIN 14.1 GM/dL (10.7-15.3); LYMPH % 24.3 % (8-40); MCH 28.6 pg (25.7-33.7); MCHC 33.7 g/dl (32.0-36.0); MEAN CELL VOLUME 84.7 fl (80-96); MEAN PLT VOLUME 9.4 fl (7.5-11.1); MONO % 6.5 % (3.8-10.2); NEUT % 68.1 % (42.8-82.8); PLATELET COUNT 251 10^3/uL (134-434); RBC 4.95 M/mm3 (3.60-5.2); RDW 15.3 % (11.6-15.6); WHITE BLOOD COUNT 9.1 K/mm3 (4.0-10.0)
[2023-02-28 12:40] LABS: ACTIVATED PTT 30.3 SECONDS (25.2-36.5); INR 1.21 (0.83-1.09)
[2023-02-28 13:25] LABS: CHLORIDE 106 mmol/L (98-107); POTASSIUM 4.1 mmol/L (3.5-5.1); SODIUM 142 mmol/L (136-145)
[2023-02-28 13:29] LABS: ALBUMIN 3.4 g/dl (3.4-5.0); CALCIUM 8.9 mg/dL (8.5-10.1)
[2023-02-28 13:30] LABS: ANION GAP 9 MMOL/L (8-16); BLOOD UREA NITROGEN 33.8 mg/dL (7-18); CO2 27 mmol/L (21-32); GLUCOSE,RANDOM 165 mg/dL (74-106); MAGNESIUM 1.3 mg/dL (1.8-2.4)
[2023-02-28 13:33] LABS: CREATININE 1.3 mg/dL (0.55-1.3); SGOT/AST 19 U/L (15-37); SGPT/ALT 19 U/L (13-61)
[2023-02-28 13:34] LABS: BILIRUBIN,TOTAL 0.6 mg/dL (0.2-1)
[2023-02-28 13:36] LABS: ALK PHOS 95 U/L (45-117)
[2023-02-28] MEDS ORDERED: MAGNESIUM SULF 50% (8.12 MEQ/2 ML-1 GM VIAL) IVPB ONE (14:03)
[2023-02-28] MEDS ORDERED: MAGNESIUM SULFATE IN WATER 2 GM/50 ML IVPB IVPB ONE (14:08)
[2023-02-28] MEDS ORDERED: INSULIN SLIDING SCALE (NOVOLOG) 1 VIAL SQ SCH (16:30)
[2023-02-28] MEDS: DEXTROSE 5%-0.45% SALINE 1,000 ML IV SCH (19:05)
[2023-02-28] MEDS ORDERED: ATORVASTATIN CA 40 MG TABLET (FP) PO SCH (22:00)
[2023-02-28] MEDS ORDERED: INSULIN (NOVOLOG) ASPART 100 UNITS/ML 10ML VIAL ONE (22:18)
[2023-02-28] MEDS: INSULIN SLIDING SCALE (NOVOLOG) 1 VIAL SQ SCH (22:29)
[2023-03-01 00:02] VITALS: RESP 18; BMI 24.1
[2023-03-01] MEDS: INSULIN SLIDING SCALE (NOVOLOG) 1 VIAL SQ SCH ×2 (06:55→11:23)
[2023-03-01] MEDS: DEXTROSE 5%-0.45% SALINE 1,000 ML IV SCH (06:56)
[2023-03-01] MEDS ORDERED: ACETAMINOPHEN 325 MG TABLET (FP) PO PRN (08:16)
[2023-03-01 09:59] VITALS: BP 118/58; PULSE 65; TEMP 97.5
[2023-03-01] MEDS ORDERED: PANTOPRAZOLE 40 MG TABLET PO SCH (10:00)
[2023-03-01] MEDS ORDERED: ASPIRIN COATED 81 MG TABLET.EC PO SCH (10:00)
[2023-03-01] MEDS ORDERED: ENOXAPARIN NA (PORCINE) 40 MG/0.4 ML DISP.SYRIN SQ SCH (10:00)
[2023-03-01 10:01] LABS: BASO % 0.3 % (0-2.0); HEMATOCRIT 36.5 % (32.4-45.2); LYMPH % 34.9 % (8-40); MCH 28.3 pg (25.7-33.7); MCHC 32.9 g/dl (32.0-36.0); MEAN PLT VOLUME 9.9 fl (7.5-11.1); MONO % 7.4 % (3.8-10.2); NEUT % 55.4 % (42.8-82.8); PLATELET COUNT 227 10^3/uL (134-434); RBC 4.24 M/mm3 (3.60-5.2); WHITE BLOOD COUNT 4.8 K/mm3 (4.0-10.0)
== END 2023-03-01 14:58 | disposition home or self-care (01) ==
LOC: JER 10:20 → JERBED 14:25 → J6S 21:16
PROVIDERS: ADMIT Internal Medicine; ATTEND Internal Medicine
PROC: 3E0337Z Introduction of Electrolytic and Water Balance Substance into Peripheral Vein, Percutaneous Approach (ICD-10-PCS; principal; 2023-02-28)
PROC: 3E023GC Introduction of Other Therapeutic Substance into Muscle, Percutaneous Approach (ICD-10-PCS; 2023-02-28)
PROC: 3E013VG Introduction of Insulin into Subcutaneous Tissue, Percutaneous Approach (ICD-10-PCS; 2023-02-28)
DX: I95.9 Hypotension, unspecified (principal); R42 Dizziness and giddiness; E78.5 Hyperlipidemia, unspecified; I25.10 Atherosclerotic heart disease of native coronary artery without angina pectoris; R74.8 Abnormal levels of other serum enzymes; R77.8 Other specified abnormalities of plasma proteins; E86.0 Dehydration; I11.0 Hypertensive heart disease with heart failure; I50.30 Unspecified diastolic (congestive) heart failure; E11.9 Type 2 diabetes mellitus without complications; M19.90 Unspecified osteoarthritis, unspecified site; K59.00 Constipation, unspecified; G89.29 Other chronic pain; Z91.81 History of falling; F17.200 Nicotine dependence, unspecified, uncomplicated
CPT/HCPCS: 36415; 71045-TC-FY; 80053; 82272; 82550; 82962; 83735; 84484; 85025; 85610; 85730; 86850; 86900; 86901; 87045; 87046; 87186; 87324; 87449; 93005; 93010; 96360; 96361; 96372; 99285-25; G0378

== ENCOUNTER 2023-04-13 19:18 | Emergency (ER) | payer OTHER ==
[2023-04-13 20:07] LABS: BASO % 0.8 % (0-2.0); HEMATOCRIT 40.5 % (32.4-45.2); HEMOGLOBIN 13.9 GM/dL (10.7-15.3); LYMPH % 41.3 % (8-40); MCH 29.5 pg (25.7-33.7); MCHC 34.2 g/dl (32.0-36.0); MEAN CELL VOLUME 86.3 fl (80-96); MEAN PLT VOLUME 9.2 fl (7.5-11.1); MONO % 9.3 % (3.8-10.2); NEUT % 47.6 % (42.8-82.8); PLATELET COUNT 285 10^3/uL (134-434); RDW 15.9 % (11.6-15.6); WHITE BLOOD COUNT 7.8 K/mm3 (4.0-10.0)
[2023-04-13] MEDS ORDERED: levETIRAcetam 500 MG/5 ML INJECTION VIAL IVPB ONE ×2 (20:12→21:33)
[2023-04-13 20:18] VITALS: BMI 29.2
[2023-04-13 20:18] LABS: INR 1.07 (0.83-1.09); PROTHROMBIN TIME (PATIENT) 12.4 SEC (9.7-13.0)
[2023-04-13 20:21] LABS: ACTIVATED PTT 29.1 SECONDS (25.2-36.5)
[2023-04-13 20:50] VITALS: RESP 18
[2023-04-13 21:01] LABS: VENOUS BASE EXCESS 1.1 mmol/L (-2-2); VENOUS O2 SATURATION 48.1 % (70-80); VENOUS PCO2 51.1 mmHg (38-52); VENOUS PH 7.35 (7.310-7.410)
[2023-04-13] MEDS ORDERED: ASPIRIN 300 MG SUPP.RECT RC ONE ×2 (21:29→21:34)
[2023-04-13 21:30] LABS: CHLORIDE 104 mmol/L (98-107); POTASSIUM 3.9 mmol/L (3.5-5.1); SODIUM 140 mmol/L (136-145)
[2023-04-13 21:33] LABS: ANION GAP 8 MMOL/L (8-16); BLOOD UREA NITROGEN 12.6 mg/dL (7-18); CALCIUM 9.1 mg/dL (8.5-10.1); CO2 29 mmol/L (21-32)
[2023-04-13 21:34] LABS: ALBUMIN 3.4 g/dl (3.4-5.0); GLUCOSE,RANDOM 207 mg/dL (74-106)
[2023-04-13 21:36] LABS: CREATININE 0.8 mg/dL (0.55-1.3); SGOT/AST 9 U/L (15-37); SGPT/ALT 19 U/L (13-61)
[2023-04-13 21:37] LABS: CHOLESTEROL 90 mg/dL (50-200); TOT PROT 7.1 g/dl (6.4-8.2)
[2023-04-13 21:38] LABS: BILIRUBIN,TOTAL 0.1 mg/dL (0.2-1); HDL CHOLESTEROL 40 mg/dL (40-60); LDL CHOLESTEROL (ONLY SJRH) 39 mg/dL (5-100)
[2023-04-13 21:40] LABS: ALK PHOS 138 U/L (45-117)
[2023-04-13 21:44] LABS: LACTIC ACID 2.1 mmol/L (0.4-2.0)
[2023-04-13 22:26] VITALS: BP 152/66; PULSE 81; TEMP 98
== END 2023-04-13 22:54 | disposition short-term general hospital (02) ==
LOC: JER 19:18
PROC: 3E033GC Introduction of Other Therapeutic Substance into Peripheral Vein, Percutaneous Approach (ICD-10-PCS; principal; 2023-04-13)
PROC: 3E033GC Introduction of Other Therapeutic Substance into Peripheral Vein, Percutaneous Approach (ICD-10-PCS; 2023-04-13)
DX: I65.02 Occlusion and stenosis of left vertebral artery (principal); R41.82 Altered mental status, unspecified; R42 Dizziness and giddiness; R47.9 Unspecified speech disturbances; R25.1 Tremor, unspecified; R53.1 Weakness; R47.01 Aphasia
CPT/HCPCS: 36415; 70450-TC; 70496-TC; 70498-TC; 80053; 80061; 80307; 82010; 82550; 82803; 82962; 83036; 83605; 84484; 85025; 85610; 85730; 86850; 86900; 86901; 93005; 93010; 99291

== ENCOUNTER → 2023-04-18 | Day surgery (SDC) | payer OTHER ==
[~2023-04-18] MED LIST changes: +ACETAMINOPHEN 500 MG TABLET (FP) PO PRN; +DEXAMETHASONE SOD PHOSPHATE 10 MG/1 ML VIAL ONE; -LIDOCAINE HCL 1% PRESERVATIVE FREE - 30ML VIAL IJ ONE; +LIDOCAINE HCL/PF 1% SDV 5ML VIAL ONE
== END | disposition home or self-care (01) ==
LOC: JASU-SURG 04:02
PROVIDERS: ATTEND Pain Medicine Pain Medicine
DX: Z53.8 Procedure and treatment not carried out for other reasons (principal)
CPT/HCPCS: J1100

== ENCOUNTER 2024-01-18 20:50 | Observation (INO) | payer OTHER ==
[2024-01-18] MEDS ORDERED: ACETAMINOPHEN INJECTION 100 ML IVPB ONE (21:48)
[2024-01-18 21:52] LABS: BASO % 0.4 % (0-2.0); EOS % 1.5 % (0-4.5); HEMATOCRIT 38.8 % (32.4-45.2); LYMPH % 52.9 % (8-40); MCH 27.7 pg (25.7-33.7); MCHC 33.6 g/dl (32.0-36.0); MEAN CELL VOLUME 82.3 fl (80-96); MONO % 6.9 % (3.8-10.2); NEUT % 38.3 % (42.8-82.8); PLATELET COUNT 232 10^3/uL (134-434); RBC 4.71 M/mm3 (3.60-5.2); RDW 14.7 % (11.6-15.6); WHITE BLOOD COUNT 7.8 K/mm3 (4.0-10.0)
[2024-01-18 22:01] LABS: INR 1.13 (0.83-1.09); PROTHROMBIN TIME (PATIENT) 12.7 SEC (9.7-13.0)
[2024-01-18 22:03] LABS: ACTIVATED PTT 30.8 SECONDS (25.2-36.5)
[2024-01-18 22:11] LABS: POTASSIUM 3.9 mmol/L (3.5-5.1)
[2024-01-18 22:13] LABS: ALBUMIN 3.4 g/dl (3.4-5.0); CALCIUM 9.2 mg/dL (8.5-10.1)
[2024-01-18 22:14] LABS: BLOOD UREA NITROGEN 14.9 mg/dL (7-18)
[2024-01-18 22:16] LABS: CREATININE 0.4 mg/dL (0.55-1.3)
[2024-01-18] MEDS: ACETAMINOPHEN 1000 MG/100 ML BAG IVPB ONE (22:16)
[2024-01-18 22:18] LABS: BILIRUBIN,TOTAL 0.3 mg/dL (0.2-1); TOT PROT 7.4 g/dl (6.4-8.2)
[2024-01-18 23:10] LABS: PH,URINE 7.5 (5.0-8.0); URINE APPEARANCE CLEAR; URINE BILIRUBIN NEGATIVE (NEGATIVE); URINE COLOR YELLOW; URINE GLUCOSE (UA) NEGATIVE (NEGATIVE); URINE KETONE NEGATIVE (NEGATIVE); URINE LEUK ESTERASE NEGATIVE (NEGATIVE); URINE NITRITE NEGATIVE (NEGATIVE); URINE PROTEIN NEGATIVE (NEGATIVE); URINE UROBILINOGEN 0.2 mg/dL (0.2-1.0)
[2024-01-19] MEDS ORDERED: ACETAMINOPHEN 1000 MG/100 ML BAG IVPB PRN (05:12)
[2024-01-19 05:50] VITALS: RESP 18; BMI 27.4
[2024-01-19 07:31] LABS: BASO % 0.6 % (0-2.0); EOS % 1.6 % (0-4.5); HEMATOCRIT 34.9 % (32.4-45.2); HEMOGLOBIN 11.8 GM/dL (10.7-15.3); LYMPH % 48.8 % (8-40); MCH 27.8 pg (25.7-33.7); MCHC 33.7 g/dl (32.0-36.0); MEAN CELL VOLUME 82.3 fl (80-96); MEAN PLT VOLUME 8.9 fl (7.5-11.1); MONO % 7.6 % (3.8-10.2); NEUT % 41.4 % (42.8-82.8); PLATELET COUNT 204 10^3/uL (134-434); RBC 4.24 M/mm3 (3.60-5.2); WHITE BLOOD COUNT 6.6 K/mm3 (4.0-10.0)
[2024-01-19 08:26] LABS: POTASSIUM 3.2 mmol/L (3.5-5.1)
[2024-01-19 08:33] LABS: CALCIUM 8.9 mg/dL (8.5-10.1)
[2024-01-19 08:34] LABS: BLOOD UREA NITROGEN 10.7 mg/dL (7-18)
[2024-01-19 08:38] LABS: CREATININE 0.3 mg/dL (0.55-1.3)
[2024-01-19] MEDS: POTASSIUM CHLORIDE ORAL LIQUID 20 MEQ/15 ML PO ONE (11:21)
[2024-01-19] MEDS: metFORMIN HCL 500 MG TABLET (FP) PO SCH (11:21)
[2024-01-19] MEDS: KCL 10 MEQ IVPB 10 MEQ/100 ML INFUS.BAG IVPB SCH (11:22)
[2024-01-19] MEDS: PANTOPRAZOLE 40 MG TABLET PO SCH (11:22)
[2024-01-19] MEDS: ASPIRIN COATED 81 MG TABLET.EC PO SCH (11:22)
[2024-01-19] MEDS ORDERED: INSULIN (NOVOLOG MIX 70/30) 100 UNITS/ML MDV SQ ONE (11:52)
[2024-01-19] MEDS: INSULIN ASPART SLIDING SCALE (NOVOLOG) 1 VIAL SQ SCH (11:56)
[2024-01-19] MEDS: LOSARTAN POTASSIUM 50 MG TABLET PO SCH (16:33)
[2024-01-19] MEDS: ATORVASTATIN CA 20 MG TABLET (FP) PO SCH (21:59)
[2024-01-19] MEDS: FUROSEMIDE 40 MG TABLET (FP) PO SCH (22:02)
[2024-01-20 07:44] LABS: CHLORIDE 107 mmol/L (98-107); SODIUM 142 mmol/L (136-145)
[2024-01-20 07:48] LABS: CALCIUM 9.2 mg/dL (8.5-10.1)
[2024-01-20 07:49] LABS: ANION GAP 5 mmol/L (4-13); BLOOD UREA NITROGEN 12.2 mg/dL (7-18); CO2 30 mmol/L (21-32); GLUCOSE,RANDOM 138 mg/dL (74-106)
[2024-01-20 07:52] LABS: CREATININE 0.4 mg/dL (0.55-1.3); SGOT/AST 18 U/L (15-37); SGPT/ALT 27 U/L (13-61)
[2024-01-20 07:54] LABS: BILIRUBIN,TOTAL 0.7 mg/dL (0.2-1); TOT PROT 6.6 g/dl (6.4-8.2)
[2024-01-20 07:55] LABS: ALK PHOS 110 U/L (45-117); BASO % 0.8 % (0-2.0); EOS % 1.4 % (0-4.5); HEMATOCRIT 38.4 % (32.4-45.2); HEMOGLOBIN 13.2 GM/dL (10.7-15.3); LYMPH % 50.9 % (8-40); MCHC 34.3 g/dl (32.0-36.0); MEAN CELL VOLUME 81.6 fl (80-96); MEAN PLT VOLUME 8.9 fl (7.5-11.1); MONO % 5.9 % (3.8-10.2); PLATELET COUNT 222 10^3/uL (134-434); RBC 4.71 M/mm3 (3.60-5.2); RDW 14.6 % (11.6-15.6); WHITE BLOOD COUNT 5.4 K/mm3 (4.0-10.0)
[2024-01-20] MEDS ORDERED: SENNOSIDES 8.6MG TABLET (FP) PO PRN (13:18)
[2024-01-20] MEDS: POLYETHYLENE GLYCOL (HEALTHYLAX) 3350 17 GM PACKET PO SCH (13:54)
[2024-01-20] MEDS: DOCUSATE SODIUM 100 MG CAPSULE (FP) PO SCH (21:38)
[2024-01-21] MEDS: ACETAMINOPHEN 1000 MG/100 ML BAG IVPB ONE (00:24)
[2024-01-21 04:55] VITALS: TEMP 98.6
[2024-01-21 08:03] LABS: BASO % 0.3 % (0-2.0); EOS % 1.4 % (0-4.5); HEMATOCRIT 36.9 % (32.4-45.2); HEMOGLOBIN 12.7 GM/dL (10.7-15.3); LYMPH % 45.2 % (8-40); MCH 28.1 pg (25.7-33.7); MCHC 34.4 g/dl (32.0-36.0); MEAN CELL VOLUME 81.7 fl (80-96); MONO % 6.7 % (3.8-10.2); NEUT % 46.4 % (42.8-82.8); PLATELET COUNT 212 10^3/uL (134-434); RBC 4.51 M/mm3 (3.60-5.2); RDW 14.4 % (11.6-15.6); WHITE BLOOD COUNT 6.7 K/mm3 (4.0-10.0)
[2024-01-21 08:15] LABS: CHLORIDE 105 mmol/L (98-107); SODIUM 141 mmol/L (136-145)
[2024-01-21 08:17] LABS: CALCIUM 8.9 mg/dL (8.5-10.1)
[2024-01-21 08:18] LABS: ALBUMIN 2.9 g/dl (3.4-5.0); ANION GAP 7 mmol/L (4-13); BLOOD UREA NITROGEN 15.5 mg/dL (7-18); CO2 29 mmol/L (21-32); GLUCOSE,RANDOM 124 mg/dL (74-106)
[2024-01-21 08:21] LABS: BILIRUBIN,TOTAL 0.5 mg/dL (0.2-1); CREATININE 0.5 mg/dL (0.55-1.3); SGOT/AST 15 U/L (15-37); SGPT/ALT 25 U/L (13-61); TOT PROT 6.3 g/dl (6.4-8.2)
[2024-01-21 08:24] LABS: ALK PHOS 108 U/L (45-117)
[2024-01-21 09:00] LABS: ERYTHROCYTE SEDIMENTATION RATE 8 mm/hr (0-30)
[2024-01-21 12:11] VITALS: BP 137/76; PULSE 93
== END 2024-01-21 13:02 ==
LOC: JER 20:50 → JERBED 01-19 01:15 → J7W 01-19 05:14
PROVIDERS: ADMIT Internal Medicine; ATTEND Internal Medicine
PROC: 3E033GC Introduction of Other Therapeutic Substance into Peripheral Vein, Percutaneous Approach (ICD-10-PCS; principal; 2024-01-19)
PROC: 3E033NZ Introduction of Analgesics, Hypnotics, Sedatives into Peripheral Vein, Percutaneous Approach (ICD-10-PCS; 2024-01-19)
DX: N17.9 Acute kidney failure, unspecified (principal); R79.89 Other specified abnormal findings of blood chemistry; E78.5 Hyperlipidemia, unspecified; I10 Essential (primary) hypertension; M54.16 Radiculopathy, lumbar region; E11.9 Type 2 diabetes mellitus without complications; R29.898 Other symptoms and signs involving the musculoskeletal system; N20.0 Calculus of kidney; G89.29 Other chronic pain; M54.9 Dorsalgia, unspecified; R26.2 Difficulty in walking, not elsewhere classified; M79.604 Pain in right leg; M79.605 Pain in left leg; Z72.0 Tobacco use; Z86.73 Personal history of transient ischemic attack (TIA), and cerebral infarction without residual deficits
CPT/HCPCS: 0241U-QW; 36415; 70450-TC; 72131-TC; 75635-TC; 80048; 80053; 81003; 82085; 82962; 85025; 85610; 85651; 85730; 86140; 86850; 86900; 86901; 87086; 93005; 93010; 96365; 96374; 96376; 97116-GP; 97162-GP; 99285-25; G0378; J0131; Q9967